=== PATIENT | female | born 1940 | race Caucasian/White ===

== ENCOUNTER 2020-02-11 10:37 | Emergency (ER) | payer MEDICARE, OTHER, SELFPAY ==
--- NOTE | ~2020-02-11 | XR_ITS ---
EXAMINATION: XR chest 1V portable INDICATION: Cough and shortness of breath TECHNIQUE: Portable AP chest at 1155 hours COMPARISON: None available FINDINGS: There are minimal airspace opacities of the lung bases. No pleural effusion or pneumothorax is identified. The cardiomediastinal silhouette is normal. IMPRESSION: 1. No acute cardiopulmonary abnormality. Reviewed, dictated and finalized at location A.
[2020-02-11 10:54] VITALS: BP 154/76; PULSE 77; RESP 14; TEMP 36.7; O2SAT 99
[2020-02-11 11:30] VITALS: O2SAT 100
[2020-02-11 11:36] LABS: Basophils Percent Auto 0.1 % (0.2-1.2); Hematocrit 33.8 % (37.0-47.0); Hemoglobin 11.5 g/dL (12.0-15.0); Immature Granulocyte Absolute 0.02 K/mm3 (0.00-0.031); Immature Granulocyte Percent A 0.3 % (0-0.5); Lymphocytes Percent Auto 7.5 % (18.3-44.2); Mean Corpuscular Hemoglobin 29.5 pg (26-34); Mean Corpuscular Volume 86.7 fl (80-100); Mean Platelet Volume 9.6 fl (7.4-10.4); Monocytes Absolute Auto 0.8 K/mm3 (0.1-0.6); Monocytes Percent Auto 9.7 % (2.6-8.5); Neutrophils Absolute Auto 6.6 K/mm3 (1.3-6.7); Neutrophils Percent Auto 82.4 % (45.5-73.1); Platelet Count Result 317 k/mm3 (150-375); Red Cell Distribution Width 13.7 % (11.5-14.5)
[2020-02-11 11:42] LABS: Anion Gap 14.9 mmol/L (7-16); Blood Urea Nitrogen 23 mg/dL (7-17); Calcium 8.7 mg/dL (8.4-10.2); Carbon Dioxide 22 mmol/L (22-30); Chloride 94 mmol/L (98-107); Estimated Glomerular Filt Rate 60; Glucose 120 mg/dL (65-105); Potassium 3.9 mmol/L (3.4-5.0); Sodium 127 mmol/L (137-145)
[2020-02-11] MEDS: SODIUM CHLORIDE 0.9% IV 1,000 ML 999 ML IV CONT (12:36)
--- NOTE | 2020-02-11 12:47 | ED.URI ---
HPI - URI/Sore Throat General Chief Complaint: Upper Respiratory Infection Stated Complaint: COUGH, LOW GRADE TEMP, DECREASED TASTE Time Seen by Provider: 02/11/20 10:46 History of Present Illness HPI Narrative: Patient is an 79-year-old female who presents the ER with weakness and sinus congestion. Ongoing for last 10 days. Reports that she is exposed to 2 people who are known, with positive who tested positive approximately 5 days ago. Reports low-grade temp. Mild fatigue with sweats or chills. No dyspnea. She has not had productive cough. She reports decreased taste. Patient reports she is on a Z-Remberto earlier in the week and then has had a little bit of diarrhea since then. Related Data Home Medications Medication Instructions Recorded Confirmed Ca carb-D3-mag za-odn-czva-Zn 1 tablet PO DAILY 02/11/20 [Caltrate + D3 Plus Minerals] aspirin 325 mg PO DAILY 02/11/20 02/11/20 b.zbu-xqn-ejmqj-nej-yvyb-yyslk ea PO 02/11/20 [Black Cohosh Menopause Complex] cholecalciferol (vitamin D3) 25 mcg PO DAILY 02/11/20 fexofenadine [Yadira Allergy] 180 mg PO DAILY 02/11/20 fluticasone propionate 1 spray INTRANASAL DAILY 02/11/20 losartan-hydrochlorothiazide 1 tablet PO DAILY 02/11/20 02/11/20 naproxen sodium [Aleve] 220 mg PO BID 02/11/20 omeprazole 20 mg PO DAILY 02/11/20 Allergies Allergy/AdvReac Type Severity Reaction Status Date / Time No Known Allergies Allergy Verified 02/11/20 10:57 Review of Systems Review of Systems: All systems reviewed & are unremarkable except as noted in HPI and below Constitutional: Constitutional: Denies chills, Denies fever(s) and Reports weakness ENT: Reports nasal congestion and Denies sore throat Comments: decreased taste Cardiovascular: Cardiovascular: Denies chest pain and Denies radiating jaw, neck or arm pain Respiratory: Respiratory: Denies cough and Denies dyspnea Gastrointestinal: Gastrointestinal: Denies abdominal pain, Reports diarrhea, Denies nausea and Denies vomiting PMFSH Past Medical History Medical History (Updated 02/11/20 @ 13:00 by Manan Mcnair MD) Degenerative disc disease Hypertension Surgical History Surgical History (Updated 02/11/20 @ 12:54 by Manan Mcnair MD) No pertinent past surgical history Social History Social History (Updated 02/11/20 @ 12:54 by Manan Mcnair MD) Smoking status: Never smoker Gender identity (if verbalized by the patient): Female Exam Narrative: Exam Narrative: GENERAL: Well-appearing, well-nourished, and in no acute distress. HEAD: Normocephalic, atraumatic. ENT: Mucous membranes moist. CHEST: Clear to auscultation. No respiratory distress. HEART: Regular rate and rhythm. Normal peripheral pulses. ABDOMEN: Soft, nontender, nondistended. EXTREMITIES: Normal range of motion. No edema. SKIN: Warm, dry, no rash. NEURO: Alert and oriented x3. Course Course Emergency Course: Low sodium level. Patient hydrated. Negative x-ray and otherwise unremarkable lab work. Contacted patient's PCP Dr. Richardson who will follow pt up outpatient. Discussed return precautions. Vital Signs Vital signs: Vital Signs Temperature 98.1 F 02/11/20 10:54 Pulse Rate 77 02/11/20 10:54 Respiratory Rate 14 02/11/20 10:54 Blood Pressure 154/76 H 02/11/20 10:54 Pulse Oximetry 99 02/11/20 10:54 Temperature 98.1 F 02/11/20 10:54 Pulse Rate 77 02/11/20 10:54 Respiratory Rate 14 02/11/20 10:54 Blood Pressure 154/76 H 02/11/20 10:54 Pulse Oximetry 100 02/11/20 11:30 MDM - URI/Sore Throat Lab Data Result diagrams: 02/11/20 11:07 02/11/20 11:07 Labs: Lab Results 02/11/20 02/11/20 02/11/20 Range/Units 11:07 11:07 11:08 WBC 8.0 (4.5-10.0) K/mm3 RBC 3.90 L (4.2-5.4) M/mm3 Hgb 11.5 L (12.0-15.0) g/dL Hct 33.8 L (37.0-47.0) % MCV 86.7 (80-100) fl MCH 29.5 (26-34) pg MCHC 34.0 (32-36) g/dl RDW 13.7 (11.5-14.5)
[2020-02-11 13:10] VITALS: BP 146/80; PULSE 75; RESP 14; O2SAT 99
[2020-02-11 13:35] VITALS: BP 124/74; PULSE 75; RESP 14; O2SAT 99
[2020-02-11 19:46] LABS: SARS-CoV-2 RNA PCR Positive
== END 2020-02-11 13:44 | disposition home or self-care (01) ==
PROVIDERS: Emergency Provider Emergency Medicine; PCP Internal Medicine
DX: U07.1 COVID-19 (principal); E87.1 Hypo-osmolality and hyponatremia; I10 Essential (primary) hypertension; Z79.82 Long term (current) use of aspirin
CPT/HCPCS: 36415; 71045; 80048; 85025; 87635; 96360; 99283; C9803; J7030; U0003

== ENCOUNTER 2020-02-29 07:44 | Inpatient (IN) | payer MEDICARE, OTHER, SELFPAY ==
[2020-02-29] VITALS (23 sets, daily range): BP systolic 96–138; BP diastolic 58–99; PULSE 63–180; RESP 15–22; TEMP 35.9–37.1; O2SAT 96–98; BMI 26.7
--- NOTE | ~2020-02-29 | XR_ITS ---
EXAMINATION: XR chest 1V portable EXAM DATE: 02/29/2020 08:14 INDICATION: Shortness of breath and dizziness. TECHNIQUE: Portable AP frontal chest x-ray was obtained. Comparison is made to prior examination from 02/11/2020. FINDINGS: Interval development of extensive extensive abnormal reticulation, most likely acute edema or infection. Please clinically correlate. The cardiomediastinal silhouette is prominent but magnifie d on this AP technique. Cardiac silhouette is stable in size compared to prior exam. There is no pneu mothorax suspected. There are no pleural effusions. There are mild bony degenerative changes. IMPRESSION: 1. Development of extensive acute airspace disease, likely infection or edema. Please clinically cor relate. Reviewed, dictated and finalized at location B. IMPRESSION: 1. Development of extensive acute airspace disease, likely infection or edema. Please clinically correlate.
--- NOTE | ~2020-02-29 | XR_ITS ---
EXAMINATION: XR chest 1V portable EXAM DATE: 03/03/2020 06:56 INDICATION: COVID 19. TECHNIQUE: Portable AP frontal chest x-ray was obtained. Comparison is made to prior examination from 02/29/2020. FINDINGS: Moderate amount of patchy bilateral indistinct reticulonodular acute airspace disease. Prob ably infection given history provided. Difficult to appreciate significant interval change compared t o 02/28 but has developed compared to 02/10. No pneumothorax or pleural effusion. Cardiomediastinal silh ouette is normal. There are no osseous abnormalities identified. IMPRESSION: 1. Moderate amount bilateral acute reticular nodular airspace disease. Reviewed, dictated and finalized at location B.
--- NOTE | 2020-02-29 07:51 | ECG_ITS ---
Measurements Intervals [place] Rate: 154 P: AL: 0 QRS: -6 QRSD: 93 T: 85 QT: 260 QTc: 416 Interpretive Statements ATRIAL FIBRILLATION WITH RAPID VENTRICULAR RESPONSE NONSPECIFIC ST & T-WAVE ABNORMALITY- HIGH LATERAL LEADS BASELINE ARTIFACT- I, III, AVR, AVL ABNORMAL ECG Electronically Signed On 02-29-2020 8:25:32 CDT by Roland Melgar D.O.
--- NOTE | 2020-02-29 07:51 | ED.GENADULT ---
HPI - General Adult General Chief complaint: Chest Pain Stated complaint: afib rvr Time Seen by Provider: 02/29/20 07:48 History of Present Illness HPI narrative: Brought in by EMS from home for a-fib. She awoke from sleep this morning feeling weak, dizzy, and SOB. EMS was called. They found her to be in atrial fibrillation w/ RVR, rate 160-200. She has no h/o atrial fibrillation. No CP, fever, cough. Related Data Home Medications Medication Instructions Recorded Confirmed Ca carb-D3-mag el-orv-wepo-Zn 1 tablet PO DAILY 02/11/20 [Caltrate + D3 Plus Minerals] aspirin 325 mg PO DAILY 02/11/20 02/11/20 b.zqu-pkl-kmvij-dlj-umyc-wevwd ea PO 02/11/20 [Black Cohosh Menopause Complex] cholecalciferol (vitamin D3) 25 mcg PO DAILY 02/11/20 fexofenadine [Yadira Allergy] 180 mg PO DAILY 02/11/20 fluticasone propionate 1 spray INTRANASAL DAILY 02/11/20 losartan-hydrochlorothiazide 1 tablet PO DAILY 02/11/20 02/11/20 naproxen sodium [Aleve] 220 mg PO BID 02/11/20 omeprazole 20 mg PO DAILY 02/11/20 Allergies Allergy/AdvReac Type Severity Reaction Status Date / Time No Known Allergies Allergy Verified 02/11/20 10:57 Review of Systems Review of Systems: All systems reviewed & are unremarkable except as noted in HPI and below Constitutional: Constitutional: Reports weakness Cardiovascular: Cardiovascular: Denies chest pain Respiratory: Respiratory: Denies cough and Reports dyspnea Gastrointestinal: Gastrointestinal: Denies nausea and Denies vomiting Genitourinary: Genitourinary: Denies hematuria and Denies dysuria Neurologic: Reports dizziness and Reports weakness Psychiatric: Psychiatric: Denies anxiety [facility] Past Medical History Medical History Degenerative disc disease Hypertension Surgical History Surgical History No pertinent past surgical history Social History Social History Smoking status: Never smoker Gender identity (if verbalized by the patient): Female Exam Const: General: healthy appearing, no acute distress and alert Orientation/consciousness: patient oriented x3 HENMT: Head: normal to inspection Neck: Neck: normal visual inspection and no lymphadenopathy Resp: Effort & Inspection: normal respiratory effort Auscultation: clear to auscultation bilaterally and crackles Cardio: Jugular venous distension: no JVD Rate: tachycardic Rhythm: abnormal rhythm irregularly irregular Heart sounds: no murmurs GI: Inspection: non-distended GI Palp: Yes Soft to palpation and No Tenderness to palpation present (GI) Skin: General skin exam: normal color Neuro: General: patient oriented x3 and moves all extremities Speech: normal speech Extrem: General: edema bilateral (trace) Psych: Appearance: well kempt Affect: normal affect Course Consultations Consultation #1: Dr. Jacobsen. Discussed case. He does not believe that she needs to be retested or put on isolation for COVID-19 at this time. Date: 02/29/20 Time: 09:28 Vital Signs Vital signs: Vital Signs Temperature 37.1 C 02/29/20 07:41 Pulse Rate 174 H 02/29/20 07:41 Respiratory Rate 22 H 02/29/20 07:41 Blood Pressure 125/87 02/29/20 07:41 Pulse Oximetry 97 02/29/20 07:41 Temperature 37.1 C 02/29/20 07:41 Pulse Rate 143 H 02/29/20 09:25 Respiratory Rate 19 02/29/20 08:50 Blood Pressure 102/65 02/29/20 09:25 Pulse Oximetry 96 02/29/20 08:50 Medical Decision Making [facility] Narrative Medical decision making narrative: New onset a-fib. Medical Records Medical records reviewed: Yes I reviewed the patient's medical records. Vital Signs Vital Signs: Vital Signs Temperature 37.1 C 02/29/20 07:41 Pulse Rate 174 H 02/29/20 07:41 Respiratory Rate 22 H 02/29/20 07:41 Blood Pressure 125/87 02/29/20 07:41 Pulse Oxi
--- NOTE | 2020-02-29 07:51 | PC.NURSE ---
VERBAL ORDER FROM MATTHIAS CARUSO AT BEDSIDE TO RUN LR 1L BOLUS HUNG BY EMS EN ROUTE. BOLUS RUNNING AT THIS TIME.
[2020-02-29] MEDS: dilTIAZem HCl INJ 25 MG/5 ML VIAL 10 MG IV PUSH (07:58)
[2020-02-29] MEDS: SODIUM CHLORIDE 0.9% IV 500 ML 999 ML IV CONT (07:59)
--- NOTE | 2020-02-29 07:59 | PC.NURSE ---
PER ERP ARNOLDO LR STOPPED AT THIS TIME PER ORDER FROM RAFAEL MEZA BOLUS STARTED IN IT'S PLACE.
[2020-02-29 08:01] LABS: Basophils Percent Auto 0.5 % (0.2-1.2); Eosinophils Absolute Auto 0.2 K/mm3 (0-0.3); Eosinophils Percent Auto 2.8 % (0-4.4); Hematocrit 30.8 % (37.0-47.0); Hemoglobin 10.4 g/dL (12.0-15.0); Immature Granulocyte Absolute 0.03 K/mm3 (0.00-0.031); Immature Granulocyte Percent A 0.4 % (0-0.5); Lymphocytes Absolute Auto 0.75 K/mm3 (0.9-3.2); Lymphocytes Percent Auto 8.9 % (18.3-44.2); Mean Corpuscular HGB Conc 33.8 g/dl (32-36); Mean Corpuscular Hemoglobin 29.4 pg (26-34); Mean Platelet Volume 8.2 fl (7.4-10.4); Monocytes Absolute Auto 0.9 K/mm3 (0.1-0.6); Monocytes Percent Auto 11.1 % (2.6-8.5); Neutrophils Absolute Auto 6.5 K/mm3 (1.3-6.7); Neutrophils Percent Auto 76.3 % (45.5-73.1); Platelet Count Result 656 k/mm3 (150-375); Red Blood Count 3.54 M/mm3 (4.2-5.4); Red Cell Distribution Width 13.6 % (11.5-14.5); White Blood Count 8.5 K/mm3 (4.5-10.0)
[2020-02-29 08:12] LABS: Alanine Aminotransferase 28 U/L (4-35); Albumin Level 3.9 g/dL (3.5-5.1); Alkaline Phosphatase 144 U/L (38-126); Anion Gap 10 mmol/L (8-16); Aspartate Amino Transferase 34 U/L (14-36); Bilirubin,Total 0.4 mg/dL (0.2-1.3); Blood Urea Nitrogen 25 mg/dL (7-17); Calcium 9.2 mg/dL (8.4-10.2); Carbon Dioxide 24 mmol/L (22-30); Chloride 99 mmol/L (98-107); Estimated CRCL calculation 32 ml/min; Estimated Glomerular Filt Rate 48; Glucose 113 mg/dL (65-105); Potassium 4.3 mmol/L (3.4-5.0); Sodium 133 mmol/L (137-145)
[2020-02-29 08:13] LABS: INR 1.1; Prothrombin Time 13.4 Seconds (11.1-14.7)
[2020-02-29 08:14] LABS: Partial Thromboplastin Time 39.9 SECONDS (22.3-36.8)
[2020-02-29 08:24] LABS: NT Pro B Type Natriuretic Pept 461 PG/ML (5-100); Troponin I < 0.012 ng/mL (0.000-0.034)
--- NOTE | 2020-02-29 08:37 | PC.NURSE ---
VERBAL ORDER BY MATTHIAS CARUSO AT BEDSIDE TO INCREASE DILTIAZEM TO 10MG.
[2020-02-29 08:47] LABS: Add Urine Microscopic? YES; Appearance Urine Clear (Clear); Bilirubin Urine Negative (Negative); Blood Urine Negative (Negative); Color Urine Yellow (Yellow); Glucose Urine UA Negative (Negative); Ketones Urine Negative (Negative); Leukocyte Esterase Ur 1+ LEU/UL (Negative); Mucus Urine Rare /lpf; Nitrate Urine Positive (Negative); Protein Urine Negative (Negative); RBC Urine 0-2 /hpf (0-2); Specific Grav Ur 1.013 (1.001-1.035); Squamous Epithelial Cell Urine Occasional /hpf (Few); Urobilinogen Urine Negative mg/dL (<2.0)
[2020-02-29] MEDS: ENOXAPARIN 80 MG/0.8 ML SYRINGE SUB-Q (09:03)
[2020-02-29] MEDS: FUROSEMIDE INJ 40 MG/4 ML VIAL IV PUSH (09:23)
[2020-02-29] MEDS: DIGOXIN 250 MCG TABLET PO (09:23)
--- NOTE | 2020-02-29 10:22 | PM.CNCAR ---
Assessment and Plan Assessment and plan (1) Atrial fibrillation with RVR: Code(s): I48.91 - Unspecified atrial fibrillation Status: Acute Assessment and Plan: 80 y/o female with no known cardiac history who presents with A fib/RVR Patient has A fib with RVR in the setting of recent + COVID test. Continue Cardizem drip for now.Would not titrate dose further as her BP is marginal. Will also start dig load. Will give IV digoxin 0.25 mg now then 0.125 X2 with 6 hours interval Check 2D echocardiogram Her chest X ray appears worse compared to 02/11/20. Consider repeat COVID test. She received empiric abx for possible superimposed bacterial infection ( no fever or leukocytosis) She would need diuresing at some point but would hold off that as BP relatively low. Her oxygen saturation is normal on room air. (2) Person under investigation for COVID-19: Code(s): Z20.828 - Contact with and (suspected) exposure to other viral communicable diseases Status: Acute (3) Hypertension: Code(s): I10 - Essential (primary) hypertension Status: Acute Assessment and Plan: Hold antihypertensives History of Present Illness History of Present Illness Consult date/time: 02/29/20 10:22 80 y/o female with h/o HTN and no known cardiac historywho presented with nausea, dizziness and was found to be in A fib with RVR. She was recently in the ER with nasal congestion and tested positive for COVID (02/11/20). Since then she reports feeling shortness of breath that has been gradually getting worse. Today around 5 am she has acute onset of dizziness associated with nausea and more shortness of breath. She was found to be in A fib with HR ~150s. She received IV cardizem and currently on the drip at 10 mg. She also received 500 cc of fluids as her BP was borderline low. Her most recent BP is 100/60. Her HR currently is ~ 120. She still feels poorly overall but she denies chest pain. EKG shows A fin with RVR @ HR 154 Chest Xray appears worse compared to last study 2 weeks ago and was reported as pneumonia vs edema. Labs are notable for Cr 1.1 (up from 0.9). No leukocytosis. First trop negative Reason For Visit: Atrial fibrillation/CHF Review of Systems Review of Systems: All systems reviewed & are unremarkable except as noted in HPI and below Constitutional: Constitutional: Reports fatigue and Denies headache(s) Eyes: Eyes: Denies blurry vision ENT: Reports Normal hearing present and Denies headache(s) Cardiovascular: Cardiovascular: Denies chest pain, Denies diaphoresis, Denies pedal edema, Denies leg edema, Denies lightheadedness, Reports palpitations and Denies dyspnea Respiratory: Respiratory: Denies cough and Reports dyspnea Gastrointestinal: Gastrointestinal: Denies abdominal pain Musculoskeletal: Musculoskeletal: Denies back pain Neurologic: Reports Normal hearing present and Reports headache(s) Psychiatric: Psychiatric: Denies anxiety Endocrine: Endocrine: Denies fatigue and Denies palpitations PMFSH Past Medical History Medical History Degenerative disc disease Hypertension Surgical History Surgical History No pertinent past surgical history Social History Social History Smoking status: Never smoker Gender identity (if verbalized by the patient): Female Meds Home Medications and Allergies Home Medications Medication Instructions Recorded Confirmed Type Ca carb-D3-mag wq-fje-lril-Zn 1 tablet PO DAILY 02/11/20 History [Caltrate + D3 Plus Minerals] aspirin 325 mg PO DAILY 02/11/20 02/11/20 History b.cnk-pag-bhqld-vjb-jtzr-tsrsx ea PO 02/11/20 History [Black Cohosh Menopause Complex] cholecalciferol (vitamin D3) 25 mcg PO DAILY 02/11/20 History fexofenadine [Yadira Allergy] 180
[2020-02-29 11:31] LABS: Troponin I 0.021 ng/mL (0.000-0.034)
--- NOTE | 2020-02-29 12:32 | ADMGEN ---
This patient, Priyanka Castaneda, was admitted to Intensive Care Unit-1 on 02/29/20 @ 1042. Patient oriented to hospital policies and general routines including ID bracelet, bed and alarms, visiting hours, pain management, procedures, bathroom and other care routines, personal items, smoking policy, room service/diet, and visiting hours. Valuables list has been completed. Information on how to activate the Rapid Response Team has been discussed. Patient is encouraged to report perceived risks to care and to ask questions if they do not understand what they are told or what they should do.
[2020-02-29] MEDS: dilTIAZem HCL 60 MG TABLET PO ×3 (13:29→23:54)
--- NOTE | 2020-02-29 13:30 | PM.IMHP ---
H&P: HPI History of Present Illness Date/Time: 02/29/20 13:20 Chief complaint: Short of breath, weak, dizzy. Narrative: Priyanka Castaneda is an 80-year-old female with hypertension who presented to the emergency department earlier this morning via EMS from home for evaluation of shortness of breath, weakness, and dizziness. Approximately 3 and half weeks ago she was exposed to somebody positive for COVID-19, and several days thereafter she developed symptoms initially attributed to a sinus infection including congestion, rhinorrhea, low-grade fever, hot flashes, hyposmia, and dysgeusia. She was prescribed a Z-Remberto by her primary care provider without much benefit and she was then seen emergency department on February 10 for she tested positive for COVID-19. She continued to have symptoms for a couple of weeks, before developing a nonproductive dry cough over the last for 5 days. She has also had some mild shortness of breath and in fact has been using her daughters rescue inhaler on occasion. At approximately 05:30, she was wakened from sleep with shortness of breath and when she got up she reports feeling extremely weak, dizzy/lightheaded, nauseated, and diaphoretic. Shortly thereafter she developed midsternal chest tightness and came into the emergency department, where she was found to be in new onset atrial fibrillation with rapid ventricular response. She was started on a Cardizem drip and has since converted to normal rhythm. The only complaint she has at the time my evaluation is of fatigue. She has not had exertional chest pain and denies feelings of racing heart and palpitations. She has no prior history of atrial fibrillation, hypothyroidism, coronary artery disease, or pulmonary embolism. Prior to COVID, she did not have exertional shortness of breath. No orthopnea, PND, or lower extremity Review of Systems Review of Systems: Narrative: Twelve systems were reviewed with pertinent positives and negatives as per HPI. Tested positive for COVID on February 11, 2020 as detailed above with symptoms include low-grade fever, dry cough, sinus congestion, rhinorrhea, anosmia, and dysgeusia. No headache, vertigo, auditory, or visual changes. No vomiting or diarrhea. No dysuria hematuria but she has had urinary frequency and urgency. Except as documented, all other systems were reviewed and are negative. [facility] Past Medical History Medical History (Updated 02/29/20 @ 13:24 by Ayaka Arreguin PA-C) Degenerative disc disease Gastroesophageal reflux Hypertension Surgical History Surgical History (Updated 02/29/20 @ 16:14 by Ayaka Arreguin PA-C) History of varicose vein stripping Status post debridement Of right lower extremity ulcer x5. Family History Family History Sibling Heart problem Social History Social History (Updated 02/29/20 @ 16:20 by Ayaka Arreguin PA-C) Social History: Surrogate decision maker: Erich Castaneda, . Code status: Full code. Smoking status: Never smoker Alcohol intake: never Substance use: never Additional living arrangements comments: Resides in [place], [place] with her . They have 3 grown children. 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 Gender identity (if verbalized by the patient): Female Sexual Orientation (if Verbalized by the Patient): Straight or Heterosexual Spiritual care concerns: No Meds Home Medications and Allergies Home Medications Medication Instructions Recorded Confirmed Type Ca carb-D3-mag ao-xws-mzmp-Zn 1 tablet PO DAILY 02/11/20 02/29/20 History [Caltrate + D3 Plus Minerals] aspirin See Rx Instructions .ROUTE .COMPLEX 02/11/20 02/29/20 History b.znb-sbe-sylyp-yuf-lekl-cqaad 1 ea PO DAILY 02/11/20 02/29/20 History [Black Cohosh Menopause Complex] cholecalciferol (vitamin D3) 25 mcg PO DAILY 02/11/2002/28
[2020-02-29 14:13] LABS: Troponin I 0.039 ng/mL (0.000-0.034)
[2020-02-29 14:45] LABS: Digoxin 0.6 ng/mL (0.8-2.0)
[2020-02-29] MEDS: DIGOXIN INJ 250 MCG/ML 2 ML AMP (*BKC) 125 MCG IV PUSH ×2 (14:48→20:04)
[2020-02-29 15:27] LABS: Creatinine Urine 8.7 mg/dL
[2020-02-29 15:32] LABS: Sodium Urine Random 105 meq/L
[2020-02-29 15:33] LABS: CRP 1.6 mg/dL (<1.0); Lactate Dehydrogenase 570 U/L (313-618); Magnesium 1.6 mg/dL (1.6-2.3)
[2020-02-29 16:37] LABS: Folic Acid 19.8 ng/mL (2.76->20)
[2020-02-29 16:55] LABS: Iron 81 ug/dL (37-170)
[2020-02-29 16:57] LABS: Percent Iron Saturation 24 % (20-50)
[2020-02-29] MEDS: LORATADINE 10 MG TABLET PO (20:03)
[2020-02-29] MEDS: ENOXAPARIN 80 MG/0.8 ML SYRINGE 70 MG SUB-Q (20:04)
[2020-02-29 23:41] LABS: SARS-CoV-2 RNA PCR Positive
[2020-03-01] VITALS (11 sets, daily range): BP systolic 114–154; BP diastolic 57–75; PULSE 61–89; RESP 17–20; TEMP 36.3–36.9; O2SAT 95–98
[2020-03-01 04:37] LABS: Basophils Absolute Auto 0.1 K/mm3 (0.0-0.1); Basophils Percent Auto 0.7 % (0.2-1.2); Eosinophils Absolute Auto 0.2 K/mm3 (0-0.3); Eosinophils Percent Auto 2.6 % (0-4.4); Hematocrit 27.9 % (37.0-47.0); Hemoglobin 9.5 g/dL (12.0-15.0); Immature Granulocyte Absolute 0.02 K/mm3 (0.00-0.031); Immature Granulocyte Percent A 0.3 % (0-0.5); Lymphocytes Absolute Auto 0.78 K/mm3 (0.9-3.2); Lymphocytes Percent Auto 10.5 % (18.3-44.2); Mean Corpuscular HGB Conc 34.1 g/dl (32-36); Mean Corpuscular Hemoglobin 29.4 pg (26-34); Mean Corpuscular Volume 86.4 fl (80-100); Mean Platelet Volume 8.6 fl (7.4-10.4); Monocytes Absolute Auto 0.9 K/mm3 (0.1-0.6); Monocytes Percent Auto 12.4 % (2.6-8.5); Neutrophils Absolute Auto 5.5 K/mm3 (1.3-6.7); Neutrophils Percent Auto 73.5 % (45.5-73.1); Platelet Count Result 636 k/mm3 (150-375); Red Blood Count 3.23 M/mm3 (4.2-5.4); Red Cell Distribution Width 13.6 % (11.5-14.5); White Blood Count 7.4 K/mm3 (4.5-10.0)
[2020-03-01 04:49] LABS: INR 1.2; Prothrombin Time 14.4 Seconds (11.1-14.7)
[2020-03-01 04:50] LABS: Partial Thromboplastin Time 55.6 SECONDS (22.3-36.8)
[2020-03-01 04:51] LABS: Anion Gap 7 mmol/L (8-16); Blood Urea Nitrogen 25 mg/dL (7-17); Calcium 8.6 mg/dL (8.4-10.2); Carbon Dioxide 26 mmol/L (22-30); Chloride 99 mmol/L (98-107); Estimated CRCL calculation 38 ml/min; Estimated Glomerular Filt Rate 60; Glucose 92 mg/dL (65-105); Magnesium 1.7 mg/dL (1.6-2.3); Sodium 132 mmol/L (137-145)
[2020-03-01 05:03] LABS: Troponin I 0.035 ng/mL (0.000-0.034)
[2020-03-01] MEDS: dilTIAZem HCL 60 MG TABLET PO ×4 (06:22→23:55)
[2020-03-01] MEDS: FLUTICASONE PROPIONATE 0.05% NA SPR 16 GM BTL (*BKC) 1 SPRAY NASAL (08:50)
[2020-03-01] MEDS: PANTOPRAZOLE 40 MG TABLET PO (08:50)
[2020-03-01] MEDS: ENOXAPARIN 80 MG/0.8 ML SYRINGE 70 MG SUB-Q ×2 (08:51→21:46)
[2020-03-01] MEDS: CHOLECALCIFEROL 1,000 UNITS TABLET 1000 UNITS PO (08:52)
--- NOTE | 2020-03-01 09:55 | PM.IMPN ---
Progress Note: A&P Assessment and Plan (1) Atrial fibrillation with RVR: Code(s): I48.91 - Unspecified atrial fibrillation Status: Acute Assessment and Plan: Now NSR Remains anticoagulated (2) COVID-19: Code(s): U07.1 - COVID-19 Status: Acute Assessment and Plan: Likely persistent positive from 02/10 illness (3) Hypertension: Qualifiers: Hypertension type: unspecified Qualified Code(s): I10 - Essential (primary) hypertension Code(s): I10 - Essential (primary) hypertension Status: Acute Assessment and Plan: monitor on diltiazem (4) Hyponatremia: Code(s): E87.1 - Hypo-osmolality and hyponatremia Status: Acute Assessment and Plan: Likely volume depletion and acute illness Avoid IVF due to recent COVID f/u lab (5) Elevated serum creatinine: Code(s): R79.89 - Other specified abnormal findings of blood chemistry Status: Acute Assessment and Plan: Resolved Subjective Date/time seen: 03/01/20 09:55 Interval history: 03/01 Taste and smell intact. No c/o except tired. Review of Systems Review of Systems: All systems reviewed & are unremarkable except as noted in HPI and below Exam Narrative: Exam Narrative: HEENT: EOMI, PERRL, sclerae nonicteric, pharyngeal mucosa pink and intact NECK: No JVD, adenopathy, or thyromegaly CHEST: Clear to auscultation. Normal effort. HEART: NL S1/S2, regular, no murmur ABDOMEN: BS+, soft, nontender, no mass, no bruits EXTREMITIES: No cyanosis, edema, or clubbing NEUROLOGIC: CN intact and symmetric to inspection. MUSCULOSKELETAL: Tone and strength symmetric. PSYCH: Alert. Oriented to person, place, and time. Objective Data Vital Signs Vital Signs: Vital Signs - 24 hr 02/29/20 10:10 02/29/20 10:42 02/29/20 12:00 Temperature 96.7 F L Pulse Rate 111 H 80 85 Respiratory Rate 19 18 Blood Pressure 115/79 121/66 Pulse Oximetry 96 96 02/29/20 14:00 02/29/20 14:48 02/29/20 16:00 Temperature 97.8 F Pulse Rate 86 90 63 Respiratory Rate 15 Blood Pressure 119/62 Pulse Oximetry 97 02/29/20 18:00 08/21/20 20:00 02/29/20 23:55 Temperature 98.3 F 98.2 F Pulse Rate 70 70 64 Respiratory Rate 17 16 Blood Pressure 119/58 L 120/60 Pulse Oximetry 96 96 03/01/20 00:00 03/01/20 03:42 03/01/20 04:00 Temperature 98.4 F Pulse Rate 61 68 69 Respiratory Rate 17 Blood Pressure 120/58 L Pulse Oximetry 95 03/01/20 08:00 03/01/20 08:43 Temperature 97.5 F L Pulse Rate 63 75 Respiratory Rate 20 Blood Pressure 119/62 Pulse Oximetry 97 Intake/Output Intake/Output: Intake & Output 02/27/20 02/28/20 02/29/20 03/01/20 23:59 23:59 23:59 23:59 Intake Total 1020 480 Output Total 1375 400 Balance -355 80 Meds/Results Medications: Active Medications Generic Name Dose Route Start Last Admin Trade Name Freq PRN Reason Stop Dose Admin Calcium Carbonate 500 mg 03/01/20 09:00 03/01/20 08:52 Os-Michele 500 +D Tablet PO 03/31/20 09:01 500 mg DAILY ARNIE Administration Diltiazem HCl 60 mg 02/29/20 12:20 03/01/20 06:22 Cardizem Tab PO 60 mg Q6HR ARNIE Administration Enoxaparin Sodium 70 mg 02/29/20 21:00 03/01/20 08:51 Lovenox SUB-Q 70 mg Q12HR ARNIE Administration Fluticasone Propionate 1 spray 03/01/20 09:00 03/01/20 08:50 Flonase 0.05% Nasal [place] NASAL 1 spray DAILY ARNIE Administration Furosemide 40 mg 02/29/20 09:00 02/29/20 09:23 Lasix Inj IV PUSH 40 mg Q12HR ARNIE Administration Ceftriaxone Sodium/Dextrose 1 gm in 50 mls @ 100 mls/hr 03/01/20 09:00 03/01/20 08:50 Rocephin 1 Gm/D5w 50 Ml IVPB 100 mls/hr Q24H ARNIE Administration Levalbuterol HCl 2 puff 02/29/20 17:30 Xopenex Hfa INHALATION Q6HRT PRN Shortness Of Breath Loratadine 10 mg 02/29/20 21:00 02/29/20 20:03 Claritin PO 03/30/20 21:01 10 mg HS ARNIE Administration Pantoprazole So
--- NOTE | 2020-03-01 10:52 | ECHO_ITS ---
Patient Info Name: Priyanka Castaneda Age: 80 years : 1940 Gender: Female Ht: 65 in Wt: 157 lbs BSA: 1.82 m2 HR: 64 bpm BP: 119 / 62 mmHg Technical Quality: Good Exam Date: 03/01/2020 10:01 AM Exam Location: [facility] Patient Status: Outpatient Admit Date: 02/29/2020 Staff Ordering Physician: Karissa Rosa MD (jessica) Post Acute Care Nurse Practitioner: Bessy Schwartz RDCS Attending Provider: Gabriel Kirkland MD Exam Type: CA echo doppler color flow Summary 1. Left ventricular systolic function is normal, estimated at 60-65%. 2. There is mildly increased left ventricular wall thickness. 3. Left atrial chamber dimension is mildly enlarged. 4. The aortic valve is trileaflet. 5. There is mild aortic valve sclerosis. 6. There is no aortic valve stenosis. 7. The mitral valve has normal leaflets. 8. There is no mitral valve regurgitation. 9. There is mild tricuspid valve regurgitation. 10. No pulmonary hypertension. 11. Normal inferior vena cava with >50% collapse upon inspiration. 12. There is no pericardial effusion. Left Ventricle Left ventricular chamber dimension is normal. Left ventricular systolic function is normal, estimated at 60-65%. There is mildly increased left ventricular wall thickness. Left ventricular septal wall motion is normal. The left ventricular diastolic function is grade I diastolic dysfunction. Right Ventricle Right ventricular chamber dimension is normal. Right ventricular systolic function is normal. Left Atria Left atrial chamber dimension is mildly enlarged. Right Atria Right atrial chamber dimension is normal. Aortic Valve The aortic valve is trileaflet. There is mild aortic valve sclerosis. There is no aortic valve stenosis. There is no aortic valve regurgitation. Pulmonic Valve The pulmonic valve is normal. There is no pulmonic valve stenosis. There is no pulmonic regurgitation. Mitral Valve The mitral valve has normal leaflets. There is no mitral valve stenosis. There is no mitral valve regurgitation. Tricuspid Valve The tricuspid valve leaflets are normal. There is no significant tricuspid valve stenosis. There is mild tricuspid valve regurgitation. No pulmonary hypertension. Pericardium/Pleural The pericardium appears normal. There is no pericardial effusion. Inferior Vena Cava Normal inferior vena cava with >50% collapse upon inspiration. Aorta The aortic root size at the sinus of Valsalva is normal. The prox ascending aorta size is normal. Left Ventricular Outflow Tract Name Value Normal LVOT 2D LVOT Diameter 1.9 cm LVOT Doppler LVOT Peak Gradient 7 mmHg LVOT Mean Gradient 3 mmHg LVOT VTI 27 cm LVOT VTI/AV VTI Ratio 1.0 LVOT Stroke Volume 78 ml LVOT CO 5.2 l/min LVOT CI 2.9 l/min/m2 Pulmonic Valve Name
--- NOTE | 2020-03-01 13:59 | PM.PNCARD ---
Progress Note: A&P Assessment and Plan (1) Atrial fibrillation with RVR: Code(s): I48.91 - Unspecified atrial fibrillation Status: Acute Assessment and Plan: 80 y/o female with no known cardiac history who presents with A fib/RVR Patient has A fib with RVR in the setting of COVID infection She converted to sinus rhythm Continue Digoxin 0.125 mg daily 2D echo reviewed. She has mildly dilated LA, normal LV systolic function and no significant valvular disease She has shortness of breath still and Her chest X ray appears worse compared to 02/11/20.Possibly related to COVID as she does not appear overtly volume overloaded. Will attempt gentle diuresing and see if that helps her symptoms (2) Hypertension: Qualifiers: Hypertension type: unspecified Qualified Code(s): I10 - Essential (primary) hypertension Code(s): I10 - Essential (primary) hypertension Status: Acute Assessment and Plan: Continue to hold antihypertensives as BP borderline low since admission (3) COVID-19: Code(s): U07.1 - COVID-19 Status: Acute Assessment and Plan: X ray shows infiltrates however stable on room air oxygen Subjective Date/time seen: 03/01/20 13:59 COVID came back positive She converted to normal sinus rhythm She feels better overall. Dizziness and nausea resolved. She is still short of breath but that has improved some. Review of Systems Review of Systems: All systems reviewed & are unremarkable except as noted in HPI and below Constitutional: Constitutional: Denies fatigue and Reports headache(s) Eyes: Eyes: Denies blurry vision ENT: Reports Normal hearing present and Reports headache(s) Cardiovascular: Cardiovascular: Denies chest pain, Denies diaphoresis, Denies pedal edema, Denies leg edema, Denies lightheadedness, Denies palpitations and Reports dyspnea Respiratory: Respiratory: Denies cough and Reports dyspnea Gastrointestinal: Gastrointestinal: Denies abdominal pain Musculoskeletal: Musculoskeletal: Denies back pain Neurologic: Reports Normal hearing present and Reports headache(s) Psychiatric: Psychiatric: Denies anxiety Endocrine: Endocrine: Denies fatigue and Denies palpitations Exam Narrative: Exam Narrative: She appears frail but in nno acute distress. Const: General: no acute distress Eyes: Sclera: sclerae normal Neck: Neck: no JVD Carotids: no bruits Resp: Effort & Inspection: normal respiratory effort Cardio: Rate: not tachycardic Heart sounds: no gallops, no murmurs and no rubs Other: Irregular. Tachy. No murmurs Skin: General skin exam: normal color Neuro: Cranial nerves: Yes Normal hearing present Speech: normal speech Extrem: General: normal to inspection and no edema Psych: Affect: normal affect Objective Data Vital Signs Vital Signs: Vital Signs - 24 hr 02/29/20 14:00 02/29/20 14:48 02/29/20 16:00 Temperature 36.6 C Pulse Rate 86 90 63 Respiratory Rate 15 Blood Pressure 119/62 Pulse Oximetry 97 02/29/20 18:00 02/29/20 20:00 02/29/20 23:55 Temperature 36.8 C 36.8 C Pulse Rate 70 70 64 Respiratory Rate 17 16 Blood Pressure 119/58 L 120/60 Pulse Oximetry 96 96 03/01/20 00:00 03/01/20 03:42 03/01/20 04:00 Temperature 36.9 C Pulse Rate 61 68 69 Respiratory Rate 17 Blood Pressure 120/58 L Pulse Oximetry 95 03/01/20 08:00 03/01/20 08:43 03/01/20 10:00 Temperature 36.4 C L Pulse Rate 63 75 64 Respiratory Rate 20 Blood Pressure 119/62 Pulse Oximetry 97 03/01/20 10:01 03/01/20 12:00 03/01/20 12:38 Temperature 36.3 C L Pulse Rate 67 65 65 Respiratory Rate 18 17 Blood Pressure 114/57 L 127/65 Pulse Oximetry 98 97 Intake/Output Intake/Output: Intake & Output 02/27/20 02/28/20 02/29/20 03/01/20 23:59 23:59 23:59 23:59 Intake Total 1020 530 Output Total 1375 400 Balance -355 130 Meds/Results Medications: Active Medicat
--- NOTE | 2020-03-01 14:58 | PC.NURSE ---
Recived report from Nakita RN/ICu- Pt arrived to med/surg [id number].Pt was on Rm air. A/Ox3.
[2020-03-01] MEDS: FUROSEMIDE INJ 40 MG/4 ML VIAL 20 MG IV PUSH (15:05)
--- NOTE | 2020-03-01 15:36 | PC.NURSE ---
This patient, Priyanka Castaneda, was transferred to [facility] on 03/01/20 at 1400. Personal belongings sent with patient. Belongings list checked. Report given to REUBEN POZO. Appropriate documentation sent with patient.
--- NOTE | 2020-03-01 18:50 | PC.NURSE ---
was made aware of urine culture results ( Gram negative bacilli isolated). He wants to continue already started Rocephin antibiotic treatment until the sensitivity report comes back.No further orders received.
[2020-03-01] MEDS: LORATADINE 10 MG TABLET PO (21:46)
[2020-03-02] VITALS (7 sets, daily range): BP systolic 110–136; BP diastolic 53–68; PULSE 65–94; RESP 18; TEMP 36.3–36.8; O2SAT 95–99
[2020-03-02] MEDS: dilTIAZem HCL 60 MG TABLET PO ×2 (06:47→12:23)
[2020-03-02] MEDS: PANTOPRAZOLE 40 MG TABLET PO (06:50)
[2020-03-02] MEDS: DIGOXIN TAB 125 MCG TABLET PO (10:05)
[2020-03-02] MEDS: CHOLECALCIFEROL 1,000 UNITS TABLET 1000 UNITS PO (10:05)
[2020-03-02] MEDS: FLUTICASONE PROPIONATE 0.05% NA SPR 16 GM BTL (*BKC) 1 SPRAY NASAL (10:05)
[2020-03-02] MEDS: ENOXAPARIN 80 MG/0.8 ML SYRINGE 70 MG SUB-Q (10:06)
--- NOTE | 2020-03-02 10:37 | PC.NURSE ---
Notified AURELIANO Vasquez of final urine culture results. No new orders at this time.
--- NOTE | 2020-03-02 14:08 | PM.PNCARD ---
Progress Note: A&P Assessment and Plan (1) Atrial fibrillation with RVR: Code(s): I48.91 - Unspecified atrial fibrillation Status: Acute Assessment and Plan: 80 y/o female with no known cardiac history who presents with A fib/RVR Patient has A fib with RVR in the setting of COVID infection She converted to sinus rhythm Continue Cardizem. Will switch to long acting 180 daily 2D echo reviewed. She has mildly dilated LA, normal LV systolic function and no significant valvular disease She has shortness of breath still and Her chest X ray appears worse compared to 02/11/20.Possibly related to COVID as she does not appear overtly volume overloaded. (2) Hypertension: Qualifiers: Hypertension type: unspecified Qualified Code(s): I10 - Essential (primary) hypertension Code(s): I10 - Essential (primary) hypertension Status: Acute Assessment and Plan: Switch Cardizem to 180 daily. Previously was on Losartan/HCTZ at home. Her BP is well controlled with Cardizem . Would d/c Losartan/HCTZ (3) COVID-19: Code(s): U07.1 - COVID-19 Status: Acute Assessment and Plan: X ray shows infiltrates however stable on room air oxygen Subjective Date/time seen: 03/02/20 14:08 Developed diarrhea. Otherwise feels better. Shortness of breath improved. Back in normal sinus rhythm Review of Systems Review of Systems: All systems reviewed & are unremarkable except as noted in HPI and below Constitutional: Constitutional: Denies fatigue and Reports headache(s) Eyes: Eyes: Denies blurry vision ENT: Reports Normal hearing present and Reports headache(s) Cardiovascular: Cardiovascular: Denies chest pain, Denies diaphoresis, Denies pedal edema, Denies leg edema, Denies lightheadedness, Denies palpitations and Reports dyspnea Respiratory: Respiratory: Denies cough and Reports dyspnea Gastrointestinal: Gastrointestinal: Denies abdominal pain Musculoskeletal: Musculoskeletal: Denies back pain Neurologic: Reports Normal hearing present and Reports headache(s) Psychiatric: Psychiatric: Denies anxiety Endocrine: Endocrine: Denies fatigue and Denies palpitations Exam Narrative: Exam Narrative: She appears frail but in nno acute distress. Const: General: no acute distress Eyes: Sclera: sclerae normal Neck: Neck: no JVD Carotids: no bruits Resp: Effort & Inspection: normal respiratory effort Cardio: Rate: not tachycardic Heart sounds: no gallops, no murmurs and no rubs Other: Irregular. Tachy. No murmurs Skin: General skin exam: normal color Neuro: Cranial nerves: Yes Normal hearing present Speech: normal speech Extrem: General: normal to inspection and no edema Psych: Affect: normal affect Objective Data Vital Signs Vital Signs: Vital Signs - 24 hr 03/01/20 16:00 03/01/20 20:00 03/02/20 00:00 Temperature 36.3 C L 36.6 C 36.4 C L Pulse Rate 72 89 67 Respiratory Rate 20 18 18 Blood Pressure 126/64 154/75 H 136/68 Pulse Oximetry 97 97 95 03/02/20 04:00 03/02/20 08:00 03/02/20 10:05 Temperature 36.6 C 36.4 C L Pulse Rate 65 65 80 Respiratory Rate 18 18 Blood Pressure 128/64 110/63 Pulse Oximetry 96 97 Intake/Output Intake/Output: Intake & Output 02/28/20 02/29/20 03/01/20 03/02/20 23:59 23:59 23:59 23:59 Intake Total 1020 890 300 Output Total 1375 1450 300 Balance -355 -560 0 Meds/Results Medications: Active Medications Generic Name Dose Route Start Last Admin Trade Name Syedq PRN Reason Stop Dose Admin Calcium Carbonate 500 mg 03/01/20 09:00 03/02/20 10:05 Os-Michele 500 +D Tablet PO 03/31/20 09:01 500 mg DAILY ARNIE Administration Digoxin 125 mcg 03/02/20 09:00 03/02/20 10:05 Lanoxin Tab PO 125 mcg QAM ARNIE Administration Diltiazem HCl 180 mg 03/03/20 09:00 Cardizem Cd PO QAM ARNIE Fluticasone Propionate 1 spray 03/01/20 09:00 03/02/20 10:05 Flonase 0.05% Nasal [place] SANGEETHA
--- NOTE | 2020-03-02 14:24 | PM.IMPN ---
Progress Note: A&P Assessment and Plan (1) Atrial fibrillation with RVR: Code(s): I48.91 - Unspecified atrial fibrillation Status: Acute Assessment and Plan: ----- likely secondary to infection but paroxysmal atrial fibrillation cannot be ruled out. She is now normal sinus rhythm and having no chest pain. She appears euvolemic today and her shortness of breath is better. I spoke with Cardiology who recommends Xarelto and further monitoring outpatient (2) COVID-19: Code(s): U07.1 - COVID-19 Status: Acute Assessment and Plan: ----- patient was 1st positive on February 10 and tested positive again on the . she has not utilizing oxygen at this time. Chest x-ray likely represents combination of viral pneumonia and edema. I will check a chest x-ray again tomorrow (3) Hypertension: Qualifiers: Hypertension type: unspecified Qualified Code(s): I10 - Essential (primary) hypertension Code(s): I10 - Essential (primary) hypertension Status: Acute Assessment and Plan: ----- last blood pressure 124/58. Continue diltiazem (4) Hyponatremia: Code(s): E87.1 - Hypo-osmolality and hyponatremia Status: Acute Assessment and Plan: ------ Improving.Likely volume depletion and acute illness. avoiding Fluids at this time. Follow (5) Elevated serum creatinine: Code(s): R79.89 - Other specified abnormal findings of blood chemistry Status: Acute Assessment and Plan: ------Resolved (6) UTI (urinary tract infection): Code(s): N39.0 - Urinary tract infection, site not specified Status: Acute Assessment and Plan: ----- urine culture growing E coli. Continue ceftriaxone. Time Spent With Patient Time with patient: 25 - 35 minutes Subjective Date/time seen: 03/02/20 14:24 Interval history: Pt is a 80-year-old female here for COVID-19 in [facility]. Patient was seen today and states she has significant diarrhea over night. She describes this as a soft stool in a happened about 5 times from 9:00 p.m. to 8:00 a.m. she is unsure she ate something bad or what. She has not had any chest pain since being here. She does feel short of breath intermittently. She feels a little lightheaded today. She is eating and drinking well. Review of Systems Review of Systems: All systems reviewed & are unremarkable except as noted in HPI and below Exam Narrative: Exam Narrative: General: elderly patient resting comfortably in bed in no acute distress HEENT: normocephalic Neck: supple Neuro: Alert and oriented x4 CV:RRR. Telemetry shows normal sinus rhythm with no recurrence of atrial fibrillation Resp:CTA Abd: Soft, non distended. No pain to palpation. Positive bowel sounds Extremities: No swelling, erythema, or pain to palpation. Objective Data Vital Signs Vital Signs: Vital Signs - 24 hr 03/01/20 16:00 03/01/20 20:00 03/02/20 00:00 Temperature 97.3 F L 97.9 F 97.5 F L Pulse Rate 72 89 67 Respiratory Rate 20 18 18 Blood Pressure 126/64 154/75 H 136/68 Pulse Oximetry 97 97 95 03/02/20 04:00 03/02/20 08:00 03/02/20 10:05 Temperature 97.8 F 97.5 F L Pulse Rate 65 65 80 Respiratory Rate 18 18 Blood Pressure 128/64 110/63 Pulse Oximetry 96 97 03/02/20 12:00 Temperature 97.4 F L Pulse Rate 70 Respiratory Rate 18 Blood Pressure 124/58 L Pulse Oximetry 99 Intake/Output Intake/Output: Intake & Output 02/28/20 02/29/20 03/01/20 03/02/20 23:59 23:59 23:59 23:59 Intake Total 1020 890 300 Output Total 1375 1450 300 Balance -355 -560 0 Meds/Results Medications: Active Medications Generic Name Dose Route Start Last Admin Trade Name Syedq PRN Reason Stop Dose Admin Calcium Carbonate 500 mg 03/01/20 09:00 03/02/20 10:05 Os-Michele 500 +D Tablet PO 03/31/20 09:01 500 mg DAILY ARNIE Administration Digoxin 125 mcg 03/02/20 09:00 03/02/20 10:05 Lanoxi
[2020-03-02] MEDS: RIVAROXABAN 20 MG TABLET PO (17:17)
[2020-03-02] MEDS: LORATADINE 10 MG TABLET PO (20:56)
[2020-03-03] VITALS: BP 134/69; PULSE 86; PULSE 87; RESP 16; TEMP 36.4; O2SAT 98
[2020-03-03 04:00] VITALS: BP 129/71; PULSE 79; PULSE 91; RESP 18; TEMP 36.5; O2SAT 97
[2020-03-03 07:01] LABS: Hematocrit 28.6 % (37.0-47.0); Hemoglobin 9.9 g/dL (12.0-15.0); Mean Corpuscular HGB Conc 34.6 g/dl (32-36); Mean Corpuscular Hemoglobin 29.6 pg (26-34); Mean Corpuscular Volume 85.4 fl (80-100); Mean Platelet Volume 8.3 fl (7.4-10.4); Platelet Count Result 653 k/mm3 (150-375); Red Blood Count 3.35 M/mm3 (4.2-5.4); Red Cell Distribution Width 13.7 % (11.5-14.5); White Blood Count 7.1 K/mm3 (4.5-10.0)
[2020-03-03 07:17] LABS: Potassium 3.7 mmol/L (3.4-5.0)
[2020-03-03 07:30] LABS: Anion Gap 9 mmol/L (8-16); Blood Urea Nitrogen 19 mg/dL (7-17); Calcium 8.7 mg/dL (8.4-10.2); Carbon Dioxide 24 mmol/L (22-30); Chloride 97 mmol/L (98-107); Estimated CRCL calculation 42 ml/min; Estimated Glomerular Filt Rate > 60; Glucose 97 mg/dL (65-105); Sodium 130 mmol/L (137-145)
[2020-03-03 08:00] VITALS: BP 156/79; PULSE 96; PULSE 98; RESP 18; TEMP 36.6; O2SAT 96
[2020-03-03 09:05] VITALS: PULSE 80; RESP 18; O2SAT 96
[2020-03-03] MEDS: CHOLECALCIFEROL 1,000 UNITS TABLET 1000 UNITS PO (09:11)
[2020-03-03 09:12] VITALS: PULSE 80
[2020-03-03] MEDS: FLUTICASONE PROPIONATE 0.05% NA SPR 16 GM BTL (*BKC) 1 SPRAY NASAL (09:12)
[2020-03-03] MEDS: DIGOXIN TAB 125 MCG TABLET PO (09:12)
[2020-03-03] MEDS: dilTIAZem HCL CD 180 MG CAP.ER.24H PO (09:12)
[2020-03-03] MEDS: PANTOPRAZOLE 40 MG TABLET PO (09:12)
[2020-03-03 12:00] VITALS: BP 139/63; PULSE 84; PULSE 85; RESP 18; TEMP 36.8; O2SAT 96
--- NOTE | 2020-03-03 13:14 | PM.DS ---
DS: Admitting Diagnosis Admitting Diagnosis Admitting Diagnosis: Short of breath, weak, dizzy. DS: Discharge Diagnosis Discharge Diagnosis (1) Atrial fibrillation with RVR: Code(s): I48.91 - Unspecified atrial fibrillation Status: Acute Assessment and Plan: ----- likely secondary to infection but paroxysmal atrial fibrillation cannot be ruled out. She is now normal sinus rhythm and having no chest pain. She appears euvolemic today and her shortness of breath is better. I spoke with Cardiology who recommends Xarelto and further monitoring outpatient (2) COVID-19: Code(s): U07.1 - COVID-19 Status: Acute Assessment and Plan: ----- patient was 1st positive on February 10 and tested positive again on the . she has not utilizing oxygen at this time. Chest x-ray likely represents combination of viral pneumonia and edema. CXR shows consistent moderate amount of bilateral acute nodular airspace disease consistent with COVID-19 (3) Hypertension: Qualifiers: Hypertension type: unspecified Qualified Code(s): I10 - Essential (primary) hypertension Code(s): I10 - Essential (primary) hypertension Status: Acute Assessment and Plan: ----- last blood pressure 139/63. Continue diltiazem (4) Hyponatremia: Code(s): E87.1 - Hypo-osmolality and hyponatremia Status: Acute Assessment and Plan: ------ Improving.Likely volume depletion and acute illness. avoiding Fluids at this time. Follow (5) Elevated serum creatinine: Code(s): R79.89 - Other specified abnormal findings of blood chemistry Status: Acute Assessment and Plan: ------Resolved (6) UTI (urinary tract infection): Code(s): N39.0 - Urinary tract infection, site not specified Status: Acute Assessment and Plan: ----- urine culture growing E coli. Treated with ceftriaxone. DS: Summary Hospital Course Reason for hospitalization: 80-year-old female who presented emergency room for weakness, dizziness and shortness of breath found to be in AFib RVR and COVID-19 positive. Temperature 37.1?, pulse 174, respiratory rate 22, blood pressure 125/87, pulse ox 97 on room air in the ER. Initial CBC white blood cell count 8.5, hemoglobin 10.4, hematocrit 30.8, platelets 656. Sodium 133, potassium 4.3, chloride 99, carbon dioxide 24, BUN 25, creatinine 1.1, glucose 113. EKG reveals atrial fibrillation with RVR with a rate of 154. Mildly elevated 0.039 which improved with treatment. Patient was admitted to the hospitalist service and observed. She was started on diltiazem, dig, and Xarelto. She remained in normal sinus rhythm at discharge. Cardiology was consulted and recommended follow-up outpatient. She did also have a UTI which she was initially treated with ceftriaxone and discharged on cefdinir. She never required oxygen although her chest x-ray did continue to show moderate airspace disease. Overall, the patient had improvement day of discharge. She was educated about the worrisome signs and symptoms to come back to emergency room for and was discharged in stable condition. She is going to follow-up with her primary care physician and Cardiology. Status at Discharge Overall status at discharge: patient is back to baseline Time Spent with Patient Time attestation: Total time spent providing and/or coordinating discharge services:34min Time spent: Greater than 30 minutes Exam Narrative: Exam Narrative: General: elderly patient resting comfortably in bed in no acute distress HEENT: normocephalic Neck: supple Neuro: Alert and oriented x4 CV:RRR. Telemetry shows normal sinus rhythm with no recurrence of atrial fibrillation Resp:CTA Abd: Soft, non distended. No pain to palpation. Positive bowel sounds Extremities: No swelling, erythema, or pain to palpation. DS: Data Data Completed and Pending Labs on day of discharge:
--- NOTE | 2020-03-03 13:23 | PM.PNCARD ---
Progress Note: A&P Assessment and Plan (1) Atrial fibrillation with RVR: Code(s): I48.91 - Unspecified atrial fibrillation Status: Acute Assessment and Plan: 80 y/o female with no known cardiac history who presents with A fib/RVR Patient has A fib with RVR in the setting of COVID infection She converted to sinus rhythm Continue Cardizem. Will switch to long acting 180 daily 2D echo reviewed. She has mildly dilated LA, normal LV systolic function and no significant valvular disease She has shortness of breath still and Her chest X ray appears worse compared to 02/11/20.Possibly related to COVID as she does not appear overtly volume overloaded. (2) Hypertension: Qualifiers: Hypertension type: unspecified Qualified Code(s): I10 - Essential (primary) hypertension Code(s): I10 - Essential (primary) hypertension Status: Acute Assessment and Plan: Switch Cardizem to 180 daily. Previously was on Losartan/HCTZ at home. Her BP is well controlled with Cardizem . Would d/c Losartan/HCTZ She seems to be stable from cardiac standpoint to be discharged home, please have her follow-up in our office in 1-2 weeks (3) COVID-19: Code(s): U07.1 - COVID-19 Status: Acute Assessment and Plan: X ray shows infiltrates however stable on room air oxygen Subjective Date/time seen: 03/03/20 13:23 she feels better, still with mild cough but no significant shortness of breath. No chest pain Exam Narrative: Exam Narrative: She appears frail but in nno acute distress. Const: General: no acute distress Eyes: Sclera: sclerae normal Neck: Neck: no JVD Carotids: no bruits Resp: Effort & Inspection: normal respiratory effort Cardio: Rate: not tachycardic Heart sounds: no gallops, no murmurs and no rubs Other: Irregular. Tachy. No murmurs Skin: General skin exam: normal color Neuro: Cranial nerves: Yes Normal hearing present Speech: normal speech Extrem: General: normal to inspection and no edema Psych: Affect: normal affect Objective Data Vital Signs Vital Signs: Vital Signs - 24 hr 03/02/20 16:00 03/02/20 20:00 03/03/20 00:00 Temperature 36.4 C 36.8 C 36.4 C Pulse Rate 68 80 87 Respiratory Rate 18 18 16 Blood Pressure 116/53 L 114/64 134/69 Pulse Oximetry 96 96 98 03/03/20 04:00 03/03/20 08:00 03/03/20 09:05 Temperature 36.5 C 36.6 C Pulse Rate 79 98 80 Respiratory Rate 18 18 18 Blood Pressure 129/71 156/79 H Pulse Oximetry 97 96 96 03/03/20 09:12 Temperature Pulse Rate 80 Respiratory Rate Blood Pressure Pulse Oximetry Intake/Output Intake/Output: Intake & Output 02/29/20 03/01/20 03/02/20 03/03/20 23:59 23:59 23:59 23:59 Intake Total 4248 359 9268 540 Output Total 1375 1450 900 700 Balance -355 -560 500 -160 Meds/Results Medications: Active Medications Generic Name Dose Route Start Last Admin Trade Name Freq PRN Reason Stop Dose Admin Calcium Carbonate 500 mg 03/01/20 09:00 03/03/20 09:14 Os-Michele 500 +D Tablet PO 03/31/20 09:01 500 mg DAILY ARNIE Administration Digoxin 125 mcg 03/02/20 09:00 03/03/20 09:12 Lanoxin Tab PO 125 mcg QAM ARNIE Administration Diltiazem HCl 180 mg 03/03/20 09:00 03/03/20 09:12 Cardizem Cd PO 180 mg QAM ARNIE Administration Fluticasone Propionate 1 spray 03/01/20 09:00 03/03/20 09:12 Flonase 0.05% Nasal [place] NASAL 1 spray DAILY ARNIE Administration Ceftriaxone Sodium/Dextrose 1 gm in 50 mls @ 100 mls/hr 03/01/20 09:00 03/03/20 09:16 Rocephin 1 Gm/D5w 50 Ml IVPB 100 mls/hr Q24H ARNIE Administration Levalbuterol HCl 2 puff 02/29/20 17:30 Xopenex Hfa INHALATION Q6HRT PRN Shortness Of Breath Loperamide HCl 2 mg 03/02/20 14:23 Loperamide Hcl PO PRN PRN Diarrhea Loratadine 10 mg 02/29/20 21:00 03/02/20 20:56 Claritin PO 03/30/20 21:01 10 mg HS ARNIE Administration Pantoprazole Sodium 4
[2020-03-05 00:32] LABS: Pneumococcal Antigen Urine Not Detected (Not Detected)
[2020-03-05 05:28] LABS: Osmolality, Urine 258 mOsm/kg (50-1200)
--- NOTE | 2020-03-05 07:46 | PC.NURSE ---
Urine pneumococcal is negative.
[2020-03-05 20:26] LABS: Legionella pneumophila Ag Ur Not Detected (Not Detected)
--- NOTE | 2020-03-11 12:20 | PC.NURSE ---
Urine Legionella is negative.
== END 2020-03-03 15:15 | disposition home or self-care (01) | DRG 178 ==
LOC: ANHED 08:24 → ANHICU 09:48 → ANH3MEDSUR 03-01 14:11
PROVIDERS: Physician Assistant; Specialist; Admitting Provider Family Medicine; Emergency Provider Emergency Medicine; PCP Internal Medicine; Visit Provider Physician Assistant
DX: U07.1 COVID-19 (principal); E87.1 Hypo-osmolality and hyponatremia; I48.91 Unspecified atrial fibrillation; I10 Essential (primary) hypertension; B96.20 Unspecified Escherichia coli [E. coli] as the cause of diseases classified elsewhere
CPT/HCPCS: 36415; 71045; 80048; 80053; 80162; 81001; 82570; 82607; 82728; 82746; 83540; 83550; 83615; 83735; 83880; 83930; 83935; 84300; 84443; 84484; 85025; 85027; 85610; 85730; 86140; 87070; 87077; 87086; 87088; 87186; 87205; 87449; 87635; 87899; 93005; 93306; 96365; 96366; 96367; 96372; 96375; 96376; 97161; 97165; 99285; A9270; C9803; G0378; J0696; J1160; J1650; J1940; J7040; U0003

== ENCOUNTER 2020-04-14 12:05 | Outpatient (CLI) | payer MEDICARE, OTHER, SELFPAY ==
--- NOTE | ~2020-04-14 | XR_ITS ---
XR chest 2V DATE: 04/14/2020 13:01 INDICATION: Shortness of breath for 2 months, chest tightness. History of colon for 2 months. TECHNIQUE: PA and lateral views COMPARISON: 02/28/2020 portable AP chest FINDINGS: There are streaky infiltrates primarily in the mid and lower lung zones, which may represen t mild residual interstitial pneumonia or atelectasis and/or scarring. Infiltrates are significantly improved since 03/03/2020. No pleural effusion. Heart size normal. No pulmonary vascular congestion. No hilar or mediastinal enlargement. No pneumoth orax. Thoracic and lumbar scoliosis. Moderate osteopenia. IMPRESSION: Considerable interval improvement of , but residual bilateral infiltrates since 03/03/2020 Reviewed, dictated and finalized at location A. IMPRESSION: Considerable interval improvement of , but residual bilateral infil trates since 03/03/2020
== END 2020-04-14 12:06 | disposition home or self-care (01) ==
PROVIDERS: Visit Provider Internal Medicine
DX: R06.02 Shortness of breath (principal); R91.8 Other nonspecific abnormal finding of lung field
CPT/HCPCS: 71046

== ENCOUNTER 2020-08-22 11:00 | Outpatient (RCR) | payer MEDICARE, OTHER, SELFPAY ==
[2020-05-26 12:28] VITALS: PULSE 101
== END 2020-08-22 23:59 | disposition home or self-care (01) ==
LOC: ANHCPREHAB 11:00
PROVIDERS: Visit Provider Internal Medicine Pulmonary Disease
DX: J84.9 Interstitial pulmonary disease, unspecified (principal)
CPT/HCPCS: 97150; G0239; G0424

== ENCOUNTER 2020-11-04 13:00 | Outpatient (RCR) | payer SELFPAY | END 2020-11-04 23:59 | disposition home or self-care (01) | LOC: ANHAUDIO 13:00 | PROVIDERS: Visit Provider Internal Medicine | DX: Z46.1 Encounter for fitting and adjustment of hearing aid (principal) | CPT/HCPCS: 99199; V5014 ==

== ENCOUNTER 2020-11-07 11:00 | Outpatient (RCR) | payer MEDICARE, OTHER, SELFPAY ==
[2020-08-25 00:02] VITALS: PULSE 101
--- NOTE | 2020-08-26 09:31 | PCCPR ---
Absent today due to inclement weather
--- NOTE | 2020-09-26 08:36 | PCCPR ---
pt cxl today due to symptoms from COVID shot
== END 2020-11-07 16:30 | disposition home or self-care (01) ==
LOC: ANHCPREHAB 11:00
PROVIDERS: Visit Provider Internal Medicine Pulmonary Disease
DX: J84.9 Interstitial pulmonary disease, unspecified (principal)
CPT/HCPCS: G0239

== ENCOUNTER 2020-11-13 08:52 | Outpatient (CLI) | payer MEDICARE, OTHER, SELFPAY ==
--- NOTE | 2020-11-13 12:57 | WPDSIXMINUTE ---
Six Minute Walk Procedure Procedure Performed Pulmonary Stress Test (6 min walk) Six Minute Walk This is a 6 minutes walk test. The test was performed and interpreted in accordance with the 2014 ERS/ATS task force guidelines. Findings: The patient's resting room air oxygen saturation measured by pulse oximetry was 96% and her heart rate was 80 bpm. Patient ambulated for 305 meters and oxygen saturation remained 96 to 98%. Heart rate at the end of the study was 92 bpm. There are no prior studies for comparison.
== END 2020-11-13 08:53 | disposition home or self-care (01) ==
LOC: ANHPFT 08:54
PROVIDERS: PCP Internal Medicine; Visit Provider Internal Medicine Pulmonary Disease
DX: J84.9 Interstitial pulmonary disease, unspecified (principal)
CPT/HCPCS: 94618

== ENCOUNTER 2021-03-30 17:56 | Emergency (ER) | payer MEDICARE, OTHER, SELFPAY ==
--- NOTE | 2021-03-30 17:59 | ED.SKABFB ---
HPI - Skin/Abscess/Foreign Bdy General Chief complaint: Skin/Abscess/Foreign Body Stated complaint: Bee Sting Time Seen by Provider: 03/30/21 18:18 Source: patient and RN notes reviewed Mode of arrival: ambulatory Limitations: no limitations History of Present Illness HPI narrative: 81-year-old female presents concern for multiple stings to bilateral hands and wrists. She reports just prior to arrival she was stung by several small bees that came out of the ground. Reports sting sites that are swollen, burning, slightly painful. Reports she moved several stingers. She denies any trouble breathing, swollen lips, swollen tongue, diarrhea, vomiting, fever. Reports she used baking soda for pain relief MD complaint: insect bite/sting Related Data Home Medications Medication Instructions Recorded Confirmed Caltrate + D3 Plus Minerals 1 tablet PO DAILY 02/11/20 05/26/20 cholecalciferol (vitamin D3) 25 mcg PO DAILY 02/11/20 05/26/20 fexofenadine [Yadira Allergy] 180 mg PO HS 02/11/20 03/30/21 fluticasone propionate 1 spray INTRANASAL DAILY 02/11/20 03/30/21 omeprazole 20 mg PO DAILY 02/11/20 03/30/21 albuterol sulfate 2 puff INHALATION QID PRN 02/29/20 03/30/21 Tumeric 500 mg PO DAILY 05/26/20 03/30/21 diphenhydramine-acetaminophen 1 tablet PO HS PRN 05/26/20 05/26/20 [Tylenol PM Extra Strength] losartan 25 mg PO DAILY 05/26/20 03/30/21 Allergies Allergy/AdvReac Type Severity Reaction Status Date / Time latex AdvReac Intermediate Rash Verified 03/30/21 17:58 Review of Systems Review of Systems: CONSTITUTIONAL: Denies malaise, chills, sweats, or fever. ENT: Denies swollen lips, swollen tongue CARDIOVASCULAR: Denies chest pain, palpitations, or edema. RESPIRATORY: Denies cough or dyspnea. GASTROINTESTINAL: Denies vomiting, diarrhea SKIN: Reports sting sites to bilateral hands and wrists All systems reviewed & are unremarkable except as noted in HPI and below PMFSH Past Medical History Medical History (Updated 03/30/21 @ 18:28 by Mimi Erazo NP) Degenerative disc disease Gastroesophageal reflux Hypertension Surgical History Surgical History (Updated 02/29/20 @ 16:14 by Ayaka Arreguin PA-C) History of varicose vein stripping Status post debridement Of right lower extremity ulcer x5. Family History Family History (Updated 05/26/20 @ 12:09 by Sonal Brown RN) Sibling Heart problem Brother Hypertension Heart attack Cancer Sibling Hypertension High cholesterol Sister Diabetes mellitus Cancer Pulmonary disease Mother Cancer Father Cancer Social History Social History (Updated 02/29/20 @ 16:20 by Ayaka Arreguin PA-C) Social History: Surrogate decision maker: Erich Castaneda, . Code status: Full code. Smoking status: Never smoker Alcohol intake: never Substance use: never Additional living arrangements comments: Resides in [place], [place] with her . They have 3 grown children. 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 Gender identity (if verbalized by the patient): Female Sexual Orientation (if Verbalized by the Patient): Straight or Heterosexual Spiritual care concerns: No Comments At time of signature, agree with nursing past medical, surgical, social and family history. There is no relevant family history pertinent to the presenting complaint Exam Narrative: GENERAL: Well-appearing, well-nourished, and in no acute distress. HEAD: Normocephalic, atraumatic. EYES: PERRLA, sclera clear, and EOMI. ENT: Mucous membranes moist. Oropharynx without edema, erythema or lesions. NECK: Supple. No lymphadenopathy CHEST: Clear to auscultation. No respiratory distress. HEART: Regular rate and rhythm. SKIN: Warm, dry. 6 sting sites noted to right and left hands and wrists, some with mild erythema and edema. None with induration, warmth. No stinger is
[2021-03-30 18:10] VITALS: BP 185/83; PULSE 72; RESP 16; TEMP 36.8; O2SAT 99
== END 2021-03-30 18:43 | disposition home or self-care (01) ==
PROVIDERS: Emergency Provider Nurse Practitioner; PCP Internal Medicine
DX: T63.441A Toxic effect of venom of bees, accidental (unintentional), initial encounter (principal); I10 Essential (primary) hypertension
CPT/HCPCS: 99213; G0463

== ENCOUNTER 2021-04-20 10:49 | Emergency (ER) | payer MEDICARE, OTHER, SELFPAY ==
[2021-04-20 11:05] VITALS: BP 146/76; PULSE 85; RESP 18; TEMP 36.8; O2SAT 99
--- NOTE | 2021-04-20 11:30 | ED.SKABFB ---
HPI - Skin/Abscess/Foreign Bdy General Chief complaint: Skin/Abscess/Foreign Body Stated complaint: Rash Time Seen by Provider: 04/20/21 11:30 Source: patient, family and RN notes reviewed Mode of arrival: ambulatory Limitations: no limitations History of Present Illness HPI narrative: Domenic is an 81-year-old female patient today here with complaints of rash on her neck. Patient states she was working out in the yard 2 days ago developed the rash she has taken Benadryl at home. Patient states she has used mupirocin cream. Patient states she does take Tylenol PM at bedtime. She complains of severe itching to the area. She is use ice to the area. Patient states she is had no shortness of breath no chest tightness. She already takes Yadira daily at supper. MD complaint: rash Onset (ago): day(s) Related Data Home Medications Medication Instructions Recorded Confirmed Caltrate + D3 Plus Minerals 1 tablet PO DAILY 02/11/20 05/26/20 cholecalciferol (vitamin D3) 25 mcg PO DAILY 02/11/20 05/26/20 fexofenadine [Yadira Allergy] 180 mg PO HS 02/11/20 03/30/21 fluticasone propionate 1 spray INTRANASAL DAILY 02/11/20 03/30/21 omeprazole 20 mg PO DAILY 02/11/20 03/30/21 albuterol sulfate 2 puff INHALATION QID PRN 02/29/20 03/30/21 Tumeric 500 mg PO DAILY 05/26/20 03/30/21 diphenhydramine-acetaminophen 1 tablet PO HS PRN 05/26/20 05/26/20 [Tylenol PM Extra Strength] losartan 25 mg PO DAILY 05/26/20 03/30/21 Allergies Allergy/AdvReac Type Severity Reaction Status Date / Time latex AdvReac Intermediate Rash Verified 03/30/21 17:58 Review of Systems Review of Systems: CONSTITUTIONAL: Denies body aches, fever, chills, or sweats. EYES: Denies visual changes, redness, or discharge. ENT: Denies rhinorrhea, congestion, sore throat, or otalgia. CARDIOVASCULAR: Denies chest pain, palpitations, or edema. RESPIRATORY: Denies cough or dyspnea. GASTROINTESTINAL: Denies abdominal pain, nausea, vomiting, or diarrhea. GENITOURINARY: Denies dysuria or hematuria. SKIN: + rash on neck MUSCULOSKELETAL: Denies back pain, joint pain, or myalgia. NEUROLOGIC: Denies headache, numbness, tingling, or weakness. PSYCH: Denies depression or anxiety. All systems reviewed & are unremarkable except as noted in HPI and below PMFSH Past Medical History Medical History Degenerative disc disease Gastroesophageal reflux Hypertension Surgical History Surgical History History of varicose vein stripping Status post debridement Of right lower extremity ulcer x5. Family History Family History Sibling Heart problem Brother Hypertension Heart attack Cancer Sibling Hypertension High cholesterol Sister Diabetes mellitus Cancer Pulmonary disease Mother Cancer Father Cancer Social History Social History Social History: Surrogate decision maker: Erich Castaneda, . Code status: Full code. Smoking status: Never smoker Alcohol intake: never Substance use: never Additional living arrangements comments: Resides in [place], [place] with her . They have 3 grown children. 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 Gender identity (if verbalized by the patient): Female Sexual Orientation (if Verbalized by the Patient): Straight or Heterosexual Spiritual care concerns: No Comments At time of signature, I have reviewed and agree with nursing past medical, surgical, social and family history unless otherwise noted. Please see nursing chart for further information. There is no relevant family history pertinent to the presenting complaint Exam Narrative: GENERAL: Well-appearing, well-nourished, and in no acute distress. HE
== END 2021-04-20 11:58 | disposition home or self-care (01) ==
PROVIDERS: Emergency Provider Nurse Practitioner Family
DX: L23.7 Allergic contact dermatitis due to plants, except food (principal); K21.9 Gastro-esophageal reflux disease without esophagitis; I10 Essential (primary) hypertension
CPT/HCPCS: 99213; G0463

== ENCOUNTER 2024-01-23 15:45 | Emergency (ER) | payer MEDICARE, OTHER, SELFPAY ==
--- NOTE | ~2024-01-23 | XR_ITS ---
XR knee RT min 4V Ordering provider: Dary Lizarraga PA-C History: . right knee pain . Comparison: None. FINDINGS: BONES: No acute fracture or dislocation. JOINT SPACES: Normal. SOFT TISSUES: Normal. IMPRESSION: No acute osseous abnormality right knee. Reviewed, dictated and finalized at location A.
--- NOTE | ~2024-01-23 | US_ITS ---
EXAMINATION: US venous doppler LE RT DATE: 01/23/2024 16:58 INDICATION: pain, hx DVT . TECHNIQUE: Grayscale images without and with compression and Doppler images of the right lower extrem ity veins were obtained. COMPARISON: None FINDINGS: The right common femoral vein, profunda (deep) femoral vein, femoral vein, popliteal vein, peroneal v ein, posterior tibial veins, gastrocnemius vein, and greater saphenous vein are patent. IMPRESSION: Patent right lower extremity veins. No evidence of deep venous thrombosis. Reviewed, dictated and finalized at location K.
[2024-01-23 16:04] VITALS: BP 154/89; PULSE 72; RESP 20; TEMP 36.4; O2SAT 99
--- NOTE | 2024-01-23 16:08 | ED.EXTPRO ---
HPI - Extremity Problem General Chief complaint: Extremity Problem,Nontraumatic <Dary Lizarraga PA-C - Last Filed: 01/24/24 11:14> Stated complaint: bruise on R leg, wants to r/o DVT <Dary Lizarraga PA-C - Last Filed: 01/24/24 11:14> Time Seen by Provider: 01/23/24 16:08 <Dary Lizarraga PA-C - Last Filed: 01/24/24 11:14> Focused HPI: This is an 83-year-old female that presents to the emergency department for right lower extremity pain. Ongoing over the last several days. 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 Reported noting a bruise on the anterior knee. Has pain to the posterior knee. No known injury. Denies decreased range of motion or numbness. GENERAL: Well-appearing, well-nourished, and in no acute distress. HEAD: Normocephalic, atraumatic. CHEST: Clear to auscultation. ?No respiratory distress. HEART: Regular rate and rhythm.? NEURO: ?Alert and oriented x3. Patient screened in triage and initial orders placed.? ?Additional care and disposition to be based upon?diagnostic testing and treatment. <Dary Lizarraga PA-C - Last Filed: 01/24/24 11:14> Source: patient <EITAN Valencia Last Filed: 01/23/24 20:41> Mode of arrival: ambulatory <EITAN Valencia Last Filed: 01/23/24 20:41> Limitations: no limitations <EITAN Valencia Last Filed: 01/23/24 20:41> History of Present Illness HPI Narrative: Agree with above HPI. Patient is an 83-year-old female who presents the ED with report of bruising to her right posterior knee. Patient reports she 1st noticed the bruising on . She denies any recent injury, but does note that she was recently kneeling for a prolonged period while working out in her garden. She reports mild discomfort he to posterior knee, worse with ambulation. Reports chronic swelling to lower extremities, states it does seem to be slightly worse in her right lower extremity. worse compression stockings routinely. She is on Xarelto due to history of AFib in previous DVT. She is compliant with this. She was seen at an urgent care today and referred to the ED to rule out DVT. Patient also has hx of varicose veins and multiple surgeries related to this. <Christina Thomas PA-C - Last Filed: 01/23/24 20:41> Related Data Home medications: Home Medications Medication Instructions Recorded Confirmed calcium carb 300 mg-D3 20 mcg-mag 1 tablet PO DAILY 02/11/20 04/20/21 ox 25 mg-copying machine mechanic 0.5 [id number] tablet (Caltrate-D3 Plus Minerals) cholecalciferol (vitamin D3) 25 25 mcg PO DAILY 02/11/20 04/20/21 mcg (1,000 unit) capsule fexofenadine 180 mg tablet 180 mg PO HS 02/11/20 04/20/21 (Yadira Allergy) fluticasone propionate 50 1 spray intranasal DAILY 02/11/20 04/20/21 mcg/actuation nasal spray,suspension omeprazole 20 mg capsule,delayed 20 mg PO DAILY 02/11/20 04/20/21 release albuterol sulfate 90 mcg/actuation 2 puff inhalation QID PRN 02/29/20 04/20/21 aerosol inhaler Shortness Of Breath Tumeric 500 mg PO DAILY 05/26/20 04/20/21 diphenhydramine 25 1 tablet PO HS PRN Sleep 05/26/20 04/20/21 mg-acetaminophen 500 mg tablet (Tylenol PM Extra Strength) losartan 25 mg tablet 25 mg PO DAILY 05/26/20 04/20/21 <Dary Lizarraga PA-C - Last Filed: 01/24/24 11:14> Allergies/Adverse reactions: Allergies Allergy/AdvReac Type Severity Reaction Status Date / Time latex AdvReac Intermediate Rash Verified 01/23/24 16:04 <Dary Lizarraga PA-C - Last Filed: 01/24/24 11:14> Review of Systems Review of Systems: CONSTITUTIONAL: Denies fever, chills, or sweats. MUSCULOSKELETAL: See HPI NEUROLOGIC: Denies headache, dizziness, numbness, or weakness. <Christina Thomas PA-C - Last Filed: 01/23/24 20:41> All systems reviewed & are unremarkable except as noted in HPI and below <Christina Thomas PA-C - Last Filed: 01/23/24 20:41> [facility]
--- NOTE | 2024-01-23 18:44 | ED.EXTPRO ---
HPI - Extremity Problem General Chief complaint: Extremity Problem,Nontraumatic Stated complaint: bruise on R leg, wants to r/o DVT Time Seen by Provider: 01/23/24 16:08 Source: patient Mode of arrival: ambulatory Limitations: no limitations Related Data Home Medications Medication Instructions Recorded Confirmed calcium carb 300 mg-D3 20 mcg-mag 1 tablet PO DAILY 02/11/20 04/20/21 ox 25 mg-copy editor 0.5 [id number] tablet (Caltrate-D3 Plus Minerals) cholecalciferol (vitamin D3) 25 25 mcg PO DAILY 02/11/20 04/20/21 mcg (1,000 unit) capsule fexofenadine 180 mg tablet 180 mg PO HS 02/11/20 04/20/21 (Yadira Allergy) fluticasone propionate 50 1 spray intranasal DAILY 02/11/20 04/20/21 mcg/actuation nasal spray,suspension omeprazole 20 mg capsule,delayed 20 mg PO DAILY 02/11/20 04/20/21 release albuterol sulfate 90 mcg/actuation 2 puff inhalation QID PRN 02/29/20 04/20/21 aerosol inhaler Shortness Of Breath Tumeric 500 mg PO DAILY 05/26/20 04/20/21 diphenhydramine 25 1 tablet PO HS PRN Sleep 05/26/20 04/20/21 mg-acetaminophen 500 mg tablet (Tylenol PM Extra Strength) losartan 25 mg tablet 25 mg PO DAILY 05/26/20 04/20/21 Allergies Allergy/AdvReac Type Severity Reaction Status Date / Time latex AdvReac Intermediate Rash Verified 01/23/24 16:04 [facility] Past Medical History Medical History Degenerative disc disease Gastroesophageal reflux Hypertension Surgical History Surgical History History of varicose vein stripping Status post debridement Of right lower extremity ulcer x5. Family History Family History Sibling Heart problem Brother Hypertension Heart attack Cancer Sibling Hypertension High cholesterol Sister Diabetes mellitus Cancer Pulmonary disease Mother Cancer Father Cancer Social History Social History Social History: Surrogate decision maker: Erich Castaneda, . Code status: Full code. Smoking status: Never smoker Alcohol intake: never Substance use: never Additional living arrangements comments: Resides in [place], [place] with her . They have 3 grown children. 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 Gender identity (if verbalized by the patient): Female Sexual Orientation (if Verbalized by the Patient): Straight or Heterosexual Spiritual care concerns: No Course Vital Signs Vital signs: Vital Signs Temperature 97.5 F L 01/23/24 16:04 Pulse Rate 72 01/23/24 16:04 Respiratory Rate 20 01/23/24 16:04 Blood Pressure 154/89 H 01/23/24 16:04 Pulse Oximetry 99 01/23/24 16:04 Oxygen Delivery Room Air 01/23/24 16:04 Temperature 97.5 F L 01/23/24 16:04 Pulse Rate 72 01/23/24 16:04 Respiratory Rate 20 01/23/24 16:04 Blood Pressure 154/89 H 01/23/24 16:04 Pulse Oximetry 99 01/23/24 16:04 Oxygen Delivery Room Air 01/23/24 16:04 Discharge Plan Discharge Prescriptions: No Action prednisone 10 mg Tablets,Dose Pack See Taper PO DAILY 12 Days Qty: 42 0RF Taper: Prednisone Taper from 60 mg;12 days 60 mg DAILY for 2 Days and 0 Hour 50 mg DAILY for 2 Days and 0 Hour 40 mg DAILY for 2 Days and 0 Hour 30 mg DAILY for 2 Days and 0 Hour 20 mg DAILY for 2 Days and 0 Hour 10 mg DAILY for 2 Days and 0 Hour methylprednisolone [Medrol (Remberto)] 4 mg tablets,dose pack See Rx Instructions .ROUTE .COMPLEX Qty: 21 0RF Rx Instructions: orally per package directions albuterol sulfate 90 mcg/actuation HFA aerosol inhaler 2 puff INHALATION QID PRN (Reason: Shortness Of Breath) digoxin 125 mcg (0.125 mg) Tablet 125 mcg PO QAM Qty: 30 0RF diltiazem HCl 180 mg Capsule,E
[2024-01-23 19:24] LABS: Basophils Absolute Auto 0.1 K/mm3 (0.0-0.1); Basophils Percent Auto 0.7 % (0.2-1.2); Eosinophils Absolute Auto 0.1 K/mm3 (0-0.3); Eosinophils Percent Auto 1.8 % (0-4.4); Hematocrit 26.6 % (37.0-47.0); Hemoglobin 8.5 g/dL (12.0-15.0); Immature Granulocyte Absolute 0.02 K/mm3 (0.00-0.031); Immature Granulocyte Percent A 0.3 % (0-0.5); Lymphocytes Absolute Auto 1.43 K/mm3 (0.9-3.2); Lymphocytes Percent Auto 19.5 % (18.3-44.2); Mean Corpuscular Hemoglobin 25.7 pg (26-34); Mean Corpuscular Volume 80.4 fl (80-100); Mean Platelet Volume 8.5 fl (7.4-10.4); Monocytes Absolute Auto 0.9 K/mm3 (0.1-0.6); Neutrophils Absolute Auto 4.8 K/mm3 (1.3-6.7); Neutrophils Percent Auto 65.7 % (45.5-73.1); Platelet Count Result 500 k/mm3 (150-375); Red Blood Count 3.31 M/mm3 (4.2-5.4); Red Cell Distribution Width 16.6 % (11.5-14.5); White Blood Count 7.3 K/mm3 (4.5-10.0)
[2024-01-23 19:36] LABS: INR 1.3; Prothrombin Time 16.8 Seconds (11.1-14.7)
[2024-01-23 19:37] LABS: Anion Gap 13 mmol/L (4-12); Blood Urea Nitrogen 22 mg/dL (7-17); Calcium 9.2 mg/dL (8.4-10.2); Carbon Dioxide 22 mmol/L (22-30); Chloride 97 mmol/L (98-107); Estimated CRCL calculation 36 ml/min; Estimated Glomerular Filt Rate 60; Glucose 98 mg/dL (65-110); Potassium 3.9 mmol/L (3.4-5.0); Sodium 132 mmol/L (137-145)
[2024-01-23 19:38] LABS: Partial Thromboplastin Time 49.8 Seconds (22.3-36.8)
[2024-01-23 20:10] VITALS: BP 149/69; PULSE 75; RESP 20; O2SAT 95
== END 2024-01-23 20:11 | disposition home or self-care (01) ==
PROVIDERS: Physician Assistant; Emergency Provider Physician Assistant
DX: S80.01XA Contusion of right knee, initial encounter (principal); D64.9 Anemia, unspecified; I48.91 Unspecified atrial fibrillation; I10 Essential (primary) hypertension; K21.9 Gastro-esophageal reflux disease without esophagitis; Z86.718 Personal history of other venous thrombosis and embolism; Z79.01 Long term (current) use of anticoagulants; Z79.899 Other long term (current) drug therapy; X58.XXXA Exposure to other specified factors, initial encounter
CPT/HCPCS: 36415; 73564; 80048; 85025; 85610; 85730; 93971; 99284

== ENCOUNTER 2024-02-26 21:15 | Inpatient (IN) | payer MEDICARE, OTHER, SELFPAY ==
--- NOTE | ~2024-02-26 | XR_ITS ---
XR chest 1V portable DATE: 02/26/2024 21:27 INDICATION: Shortness of breath TECHNIQUE: Portable AP chest on 02/26/2024 and 2110 hours COMPARISON: 04/14/2022 view chest FINDINGS: Heart size is within normal range. Aortic arch calcification. There is widening of the superior mediastinum on the right with some leftward tracheal deviation semi nal and consider possible goiter. No pulmonary consolidation, pleural effusion, pulmonary thousand congestion or pneumothorax is eviden t. Diffuse osteopenia. IMPRESSION: No active cardiopulmonary disease Reviewed, dictated and finalized at location J.
--- NOTE | ~2024-02-26 | CT_ITS ---
EXAMINATION: CT brain wo con DATE: 02/27/2024 00:11 INDICATION: Weakness. TECHNIQUE: Computed tomography (CT) of the head was performed without intravenous contrast. The mA wa s adjusted according to patient size. Iterative reconstruction technique was employed. The dose-lengt h product was 681.00 mGy-cm. 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 There are scattered areas of low attenuation in the cerebral white matter, which is within normal limits for the patient's age. There is no intracran ial hemorrhage, acute infarction, or abnormal intracranial mass lesion. The ventricles are normal in size. There is mild mucosal thickening in the ethmoid sinuses. There are likely changes of ocular yessica s replacement surgeries. The mastoid air cells are normal. IMPRESSION: 1. 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 Reviewed, dictated and finalized at location A.
--- NOTE | 2024-02-26 20:53 | ECG_ITS ---
Test Date: 2024-02-26 20:59:53 Measurements Intervals [place] Rate: 99 P: 61 GA: 162 QRS: 3 QRSD: 98 T: 47 QT: 321 QTc: 412 Interpretive Statements SINUS RHYTHM WITH FREQUENT ECTOPIC PREMATURE COMPLEXES IN A BIGEMINAL PATTERN NONSPECIFIC T-WAVE ABNORMALITY ABNORMAL ECG No previous ECG available for comparison Electronically Signed On 02-27-2024 10:56:52 CDT by Mitch Garcia M.D.
[2024-02-26 20:54] VITALS: BP 174/58; PULSE 89; RESP 19; TEMP 37.1; O2SAT 100
[2024-02-26 21:01] VITALS: PULSE 97; O2SAT 100
[2024-02-26 21:13] VITALS: O2SAT 100
[2024-02-26 21:16] LABS: Basophils Absolute Auto 0.1 K/mm3 (0.0-0.1); Basophils Percent Auto 0.7 % (0.2-1.2); Eosinophils Absolute Auto 0.1 K/mm3 (0-0.3); Eosinophils Percent Auto 1.2 % (0-4.4); Hematocrit 26.2 % (37.0-47.0); Hemoglobin 8.4 g/dL (12.0-15.0); Immature Granulocyte Absolute 0.02 K/mm3 (0.00-0.031); Immature Granulocyte Percent A 0.2 % (0-0.5); Lymphocytes Absolute Auto 1.46 K/mm3 (0.9-3.2); Lymphocytes Percent Auto 16.3 % (18.3-44.2); Mean Corpuscular HGB Conc 32.1 g/dl (32-36); Mean Corpuscular Hemoglobin 25.6 pg (26-34); Mean Corpuscular Volume 79.9 fl (80-100); Mean Platelet Volume 8.6 fl (7.4-10.4); Monocytes Percent Auto 10.8 % (2.6-8.5); Neutrophils Absolute Auto 6.3 K/mm3 (1.3-6.7); Neutrophils Percent Auto 70.8 % (45.5-73.1); Platelet Count Result 498 k/mm3 (150-375); Red Blood Count 3.28 M/mm3 (4.2-5.4); Red Cell Distribution Width 16.3 % (11.5-14.5)
[2024-02-26 21:43] LABS: Alanine Aminotransferase 16 U/L (6-35); Alkaline Phosphatase 82 U/L (38-126); Anion Gap 10 mmol/L (4-12); Aspartate Amino Transferase 26 U/L (14-36); Bilirubin,Total 0.2 mg/dL (0.2-1.3); Blood Urea Nitrogen 27 mg/dL (7-17); Calcium 8.8 mg/dL (8.4-10.2); Carbon Dioxide 22 mmol/L (22-30); Chloride 100 mmol/L (98-107); Estimated CRCL calculation 36 ml/min; Estimated Glomerular Filt Rate 53; Glucose 136 mg/dL (65-110); Potassium 3.3 mmol/L (3.4-5.0); Sodium 132 mmol/L (137-145)
[2024-02-26 23:13] VITALS: BP 135/78; PULSE 98; RESP 16; TEMP 37; O2SAT 97
[2024-02-26] MEDS: POTASSIUM CHLORIDE 20 MEQ PACKET (FOR LIQUID) 40 MEQ PO (23:27)
[2024-02-26 23:52] LABS: Lipase 74 U/L (23-300); Magnesium 1.7 mg/dL (1.6-2.3); Phosphorus 3.7 mg/dL (2.5-4.5)
[2024-02-26 23:56] LABS: INR 3.3; Prothrombin Time 34.2 Seconds (11.1-14.7)
[2024-02-27] VITALS (13 sets, daily range): BP systolic 132–172; BP diastolic 57–75; PULSE 68–98; RESP 16–19; TEMP 36.1–36.7; O2SAT 99–100
--- NOTE | 2024-02-27 | ECHO_ITS ---
Patient Info Name: Priyanka Castaneda Age: 84 years : 1940 Gender: Female Ht: 65 in Wt: 164 lbs BSA: 1.86 m2 HR: 66 bpm BP: 161 / 68 mmHg Heart Rhythm: Sinus Rhythm Technical Quality: Fair Exam Date: 02/27/2024 11:44 AM Exam Location: Echo Lab Patient Status: Inpatient Admit Date: 02/27/2024 Staff Ordering Physician: Jennie Hodges DO Financial Systems Manager: Sujatha Whitman PATRICK Attending Provider: Jennie Hodges DO Referring Physician: Tracie REHMAN; Exam Type: CA echo doppler color flow Study Info Indications R06.00 - Dyspnea, unspecified Complete two-dimensional, color flow and Doppler transthoracic echocardiogram is performed. Summary 1. Left ventricular chamber dimension is normal. 2. Left ventricular systolic function is normal, estimated at 55-60%. 3. The left ventricular diastolic function is grade I diastolic dysfunction. 4. Right ventricular systolic function is normal. 5. Left atrial chamber dimension is moderately enlarged. 6. There is mild mitral valve regurgitation. 7. There is mild tricuspid valve regurgitation. Left Ventricle Left ventricular chamber dimension is normal. Left ventricular systolic function is normal, estimated at 55-60%. There is no increased left ventricular wall thickness. The left ventricular diastolic function is grade I diastolic dysfunction. Right Ventricle Right ventricular chamber dimension is normal. Right ventricular systolic function is normal. Left Atria Left atrial chamber dimension is moderately enlarged. Right Atria Right atrial chamber dimension is normal. Atrial Septum Intact interatrial septum visualized by color flow imaging. Aortic Valve The aortic valve is trileaflet. There is no aortic valve stenosis. There is no aortic valve regurgitation. There is mild aortic valve calcification. Pulmonic Valve The pulmonic valve is not well visualized. There is trace pulmonic regurgitation. Mitral Valve There is mild mitral valve regurgitation. The mitral valve annulus is mildly calcified. Tricuspid Valve There is mild tricuspid valve regurgitation. Pericardium/Pleural There is no pericardial effusion. Inferior Vena Cava Normal inferior vena cava with >50% collapse upon inspiration consistent with normal right atrial pressure, 3 mmHg. Aorta The aortic root size at the sinus of Valsalva is normal. Left Ventricular Outflow Tract Name Value Normal LVOT 2D LVOT Diameter 2.1 cm LVOT Doppler LVOT Peak Gradient 7 mmHg LVOT Mean Gradient 3 mmHg LVOT VTI 34 cm LVOT VTI/AV VTI Ratio 0.8 LVOT Stroke Volume 119 ml LVOT CO 4.2 l/min LVOT CI 2.3 l/min/m2 Pulmonic Valve Name Value Normal PV Doppler PV Peak Gradient 2 mmHg PV Regurgitation Dopp
[2024-02-27 00:05] LABS: NT Pro B Type Natriuretic Pept 984 pg/mL (19.9-100); Troponin I < 0.012 ng/mL (0.000-0.034)
[2024-02-27 00:21] LABS: Lactic Acid Reflex 1.2 mmol/L (0.7-2.0)
[2024-02-27 01:06] LABS: Influenza A QL RT-PCR Negative (Negative); Influenza B QL RT-PCR Negative (Negative); RSV RNA, RT-PCR Negative (Negative); SARS-CoV-2 RNA PCR Negative (Negative)
[2024-02-27 01:14] LABS: Add Urine Microscopic? YES; Appearance Urine Turbid (Clear); Bacteria Urine 4+ /hpf; Bilirubin Urine Negative (Negative); Blood Urine 1+ (Negative); Color Urine Yellow (Yellow); Glucose Urine UA Negative (Negative); Ketones Urine Negative (Negative); Leukocyte Esterase Ur 3+ LEU/UL (Negative); Nitrate Urine Positive (Negative); Non Pathogenic Casts 0-2; Protein Urine Negative (Negative); RBC Urine 0-2 /hpf (0-2); Specific Grav Ur 1.009 (1.001-1.035); Squamous Epithelial Cell Urine None Seen /hpf (Few); Urobilinogen Urine 0.2 mg/dL (<2.0); WBC Urine >100 /hpf (0-3); pH Urine 6.5 (5.0-9.0)
--- NOTE | 2024-02-27 01:44 | ED.GENADULT ---
HPI - General Adult General Chief complaint: Shortness of Breath/Dyspnea Stated complaint: sob Time Seen by Provider: 02/26/24 22:49 History of Present Illness HPI narrative: This is an 84-year-old female presenting ED with chief complaint of generalized weakness. Family notes that over the last several weeks she has become progressively more weak. She has dyspnea on exertion and low energy. Patient was having difficulty ambulating and when her went out to lunch she could barely walk without holding onto him. She has not had any falls. She denies fevers chills chest pain difficulty breathing or abdominal pain. She reports having to urinate frequently at night, but no dysuria or urgency. Patient was recently referred to a packaging operator and is receiving iron injections for anemia. She is on anticoagulation for atrial fibrillation. No melanotic or bloody stools. Related Data Home Medications Medication Instructions Recorded Confirmed calcium carb 300 mg-D3 20 mcg-mag 1 tablet PO DAILY 02/11/20 04/20/21 ox 25 mg-marketing copywriter 0.5 [id number] tablet (Caltrate-D3 Plus Minerals) cholecalciferol (vitamin D3) 25 25 mcg PO DAILY 02/11/20 04/20/21 mcg (1,000 unit) capsule fexofenadine 180 mg tablet 180 mg PO HS 02/11/20 04/20/21 ([facility]) fluticasone propionate 50 1 spray intranasal DAILY 02/11/20 04/20/21 mcg/actuation nasal spray,suspension omeprazole 20 mg capsule,delayed 20 mg PO DAILY 02/11/20 04/20/21 release albuterol sulfate 90 mcg/actuation 2 puff inhalation QID PRN 02/29/20 04/20/21 aerosol inhaler Shortness Of Breath Tumeric 500 mg PO DAILY 05/26/20 04/20/21 diphenhydramine 25 1 tablet PO HS PRN Sleep 05/26/20 04/20/21 mg-acetaminophen 500 mg tablet (Tylenol PM Extra Strength) losartan 25 mg tablet 25 mg PO DAILY 05/26/20 04/20/21 Allergies Allergy/AdvReac Type Severity Reaction Status Date / Time latex AdvReac Intermediate Rash Verified 01/23/24 16:04 [facility] Past Medical History Medical History Degenerative disc disease Gastroesophageal reflux Hypertension Surgical History Surgical History History of varicose vein stripping Status post debridement Of right lower extremity ulcer x5. Family History Family History Sibling Heart problem Brother Hypertension Heart attack Cancer Sibling Hypertension High cholesterol Sister Diabetes mellitus Cancer Pulmonary disease Mother Cancer Father Cancer Social History Social History Social History: Surrogate decision maker: Erich Castaneda, . Code status: Full code. Smoking status: Never smoker Alcohol intake: never Substance use: never Additional living arrangements comments: Resides in [place], [place] with her . They have 3 grown children. 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 Gender identity (if verbalized by the patient): Female Sexual Orientation (if Verbalized by the Patient): Straight or Heterosexual Spiritual care concerns: No Exam Narrative: APPEARANCE: Frail-appearing Head: atraumatic. EYES: EOMI, pale conjunctiva NOSE: Atraumatic NECK: Trachea midline RESPIRATORY: No increased rate of breathing clear auscultation CARDIOVASCULAR: RRR, ABDOMINAL: Non-distended soft nontender rebound CVA tenderness MUSCULOSKELETAl: No obvious deformities NEURO: Alert. Moving 4/4 extremities SKIN:: Warm, dry. Normal color PSYCHIATRIC: Normal affect Course Vital Signs Vital signs: Vital Signs Temperature 98.7 F 02/26/24 20:54 Pulse Rate 89 02/26/24 20:54 Respiratory Rate 19 02/26/24 20:54 Blood Pressure 174/58 H 02/26/24 20:54 Pulse Oximetry 100 02/26/24 20:54 O
[2024-02-27] MEDS: SODIUM CHLORIDE 0.9% IV 1,000 ML 999 ML IV CONT (01:53)
--- NOTE | 2024-02-27 02:10 | ECG_ITS ---
Test Date: 2024-02-27 02:29:13 Measurements Intervals [place] Rate: 99 P: 40 NV: 164 QRS: -5 QRSD: 90 T: 50 QT: 343 QTc: 440 Interpretive Statements SINUS RHYTHM WITH FREQUENT ECTOPIC PREMATURE COMPLEXES IN A BIGEMINAL PATTERN NONSPECIFIC T-WAVE ABNORMALITY ABNORMAL ECG Electronically Signed On 02-27-2024 10:59:46 CDT by Mitch Garcia M.D.
[2024-02-27] MEDS: LACTATED RINGERS 1,000 ML 75 ML IV CONT ×2 (02:48→17:02)
[2024-02-27 02:50] LABS: Troponin I < 0.012 ng/mL (0.000-0.034)
--- NOTE | 2024-02-27 03:26 | PM.IMHP ---
H&P: HPI History of Present Illness Date/Time: 02/27/24 03:26 Chief Complaint: Weakness and shortness of breath Narrative: 84-year-old female with a past medical history of atrial fibrillation on Xarelto, essential hypertension, hypothyroidism and iron deficiency anemia who presented to the ER from home via EMS due to weakness and shortness of breath on and off for the last 3 weeks. She reports that her breathing never returned to normal after she had COVID in 2019. She was following with pharmacy resident who told her she had scarring from her COVID infection. She did undergo pulmonary rehab immediately after COVID infection. She has not been having any cough or congestion. Patient was recently diagnosed with iron deficiency anemia. She was post to start iron infusions this coming Tuesday. It was suspected she has secondary losses from her use of Xarelto. She is supposed to have outpatient colonoscopy and EGD after she has received her iron infusions. Her Hemoccult stool has been negative. She denies any hematochezia or melena. She has been having dyspnea on exertion and fatigue. Yesterday she and her went to lunch the patient could not walk without holding onto her . She has not had any falls. She has not been having any dysuria, urgency or fevers but her UA is suggestive of UTI. She has been having increased nocturnal urinary frequency for the last week or so. With some increased urgency but urgency is only at night. It is been accompanied by more profound fatigue over the last week or so. She has not had any hematochezia or melena. Her Hemoccult on rectal exam in the ER was negative. Her hemoglobin in the ER was stable compared to last month. She reports that she tries to drink plenty of fluids. She states that her appetite is too good. She reports that she has been short of breath with exertion since she had COVID. But over the last several months if not longer sensation of palpitations when she has her shortness of breath with exertion. This sensation will also be accompanied by lightheadedness and at times dizziness. She is intermittently getting nauseated with these events. She denies any orthopnea or paroxysmal nocturnal dyspnea. She has not noticed any increased leg swelling. She reports that her clinical material handler talked about possibly stopping her Xarelto. It is unclear if it is because she has had no documented episodes of AFib since her infection with COVID or if her clinical material handler was talking about discontinuing Xarelto due to her age. She reports that has had a 30 day event monitor a couple of years ago. And she had a event monitor for about 2 weeks last year. She does not know the results of those studies. She states that she was supposed to follow-up with her clinical material handler in the next couple of months. She denies any chest pain or diaphoresis. Review of Systems Review of Systems: 12 systems were reviewed with pertinent positives and negatives per HPI. Except as documented in the HPI, all other systems were reviewed and are negative. [facility] Past Medical History Medical History (Updated 02/27/24 @ 03:47 by Jennie Hodges DO) Chronic anticoagulation Chronic hyponatremia Chronic iron deficiency anemia Degenerative disc disease Diastolic dysfunction Echo February 2020: EF 60 65% grade 1 diastolic dysfunction, mild left atrial enlargement mild increased left ventricular wall thickness Gastroesophageal reflux Hypertension Hypothyroidism Paroxysmal atrial fibrillation (02/2020) Onset occurred with active COVID infection Surgical History Surgical History (Updated 02/27/24 @ 07:44 by Jennie Hodges DO) History of varicose vein stripping Status post cataract extraction of both eyes with insertion of intraocular lens Status post debridement Of right lower extremity ulcer x5. Family History Family History Sibling Heart problem Broth
[2024-02-27 05:38] LABS: Hematocrit 23.8 % (37.0-47.0); Hemoglobin 7.7 g/dL (12.0-15.0); Mean Corpuscular HGB Conc 32.4 g/dl (32-36); Mean Corpuscular Volume 80.4 fl (80-100); Mean Platelet Volume 8.7 fl (7.4-10.4); Platelet Count Result 460 k/mm3 (150-375); Red Blood Count 2.96 M/mm3 (4.2-5.4); Red Cell Distribution Width 16.3 % (11.5-14.5); White Blood Count 8.8 K/mm3 (4.5-10.0)
[2024-02-27] MEDS: LEVOTHYROXINE SODIUM 88 MCG TABLET PO (05:47)
[2024-02-27 05:50] LABS: INR 2.1; Prothrombin Time 23.8 Seconds (11.1-14.7)
[2024-02-27 05:55] LABS: Anion Gap 9 mmol/L (4-12); Blood Urea Nitrogen 21 mg/dL (7-17); Calcium 8.4 mg/dL (8.4-10.2); Carbon Dioxide 19 mmol/L (22-30); Chloride 103 mmol/L (98-107); Estimated CRCL calculation 44 ml/min; Estimated Glomerular Filt Rate > 60; Glucose 95 mg/dL (65-110); Potassium 3.7 mmol/L (3.4-5.0); Sodium 131 mmol/L (137-145)
[2024-02-27] MEDS: PANTOPRAZOLE 40 MG TABLET PO (09:06)
[2024-02-27] MEDS: FLUTICASONE PROPIONATE 0.05% NA SPR 16 GM BTL (*BKC) 1 SPRAY NASAL (09:06)
[2024-02-27] MEDS: hydroCHLOROthiazide 25 MG TABLET PO (09:06)
[2024-02-27] MEDS: LOSARTAN POTASSIUM 100 MG TABLET PO (09:06)
[2024-02-27] MEDS: CHOLECALCIFEROL 1,000 UNITS TABLET 1000 UNITS PO (09:06)
--- NOTE | 2024-02-27 09:09 | PM.IMPN ---
Progress Note: A&P Assessment and Plan (1) UTI (urinary tract infection): Qualifiers: Hematuria presence: without hematuria Urinary tract infection type: acute cystitis Qualified Code(s): N30.00 - Acute cystitis without hematuria Code(s): N39.0 - Urinary tract infection, site not specified Status: Acute Assessment and Plan: 02/27/24: UA showing 1+ urine blood, positive nitrate, 3+ leukocytes, greater than 100 urine wbc's, 4+ urine bacteria. Urine and blood cultures were obtained and are pending Continue Rocephin Initial white blood count 9.0 (2) Generalized weakness: Code(s): R53.1 - Weakness Status: Acute Assessment and Plan: 02/27/24: Likely secondary to UTI versus iron deficiency anemia Patient noticed worsening weakness over the last 3 weeks without any fall history PT and OT ordered Continue fall precautions Echo ordered (3) Chronic hyponatremia: Code(s): E87.1 - Hypo-osmolality and hyponatremia Status: Acute Assessment and Plan: 02/27/24: Sodium 130 Hyponatremia appears to be chronic Continue to trend (4) Acute hypokalemia: Code(s): E87.6 - Hypokalemia Status: Acute Assessment and Plan: 02/27/24: Initial potassium 3.3 Patient was given 40 mEq of potassium in the ED Repeat potassium this morning was 3.7, no further potassium required Continue to trend (5) Hypothyroidism: Qualifiers: Hypothyroidism type: unspecified Qualified Code(s): E03.9 - Hypothyroidism, unspecified Code(s): E03.9 - Hypothyroidism, unspecified Status: Acute Assessment and Plan: 02/27/24: TSH WNL Continue Synthroid (6) Chronic iron deficiency anemia: Code(s): D50.9 - Iron deficiency anemia, unspecified Status: Acute Assessment and Plan: 02/27/24: Recently diagnosed with iron deficiency anemia, likely losses secondary from use of Xarelto Hemoglobin 7.7 this morning She is scheduled to start iron infusions this Tuesday plans for outpatient colonoscopy EGD after her iron infusions Stool was Hemoccult negative (7) Paroxysmal atrial fibrillation: Onset Date: 02/2020 Code(s): I48.0 - Paroxysmal atrial fibrillation Status: Acute Assessment and Plan: 02/27/24: Continue metoprolol and Xarelto Time Spent With Patient Time with patient: Greater than 35 minutes Subjective Date/time seen: 02/27/24 09:09 Interval history: Interval history: This is an 84-year-old female presented to the hospital on 02/27/2024 with complaints of weakness and shortness of breath. Workup in the hospital included a chest x-ray which was negative. 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 Initial labs showed a normal white blood cell count of 9.0, hemoglobin 8.4, sodium 132, potassium 3.3, EGFR 53, proBNP 984, TSH 1.42. UA was obtained and showed 1+ urine blood, positive nitrate, 3+ leukocyte, greater than 100 urine WBC, 4+ bacteria. Respiratory panel was obtained and was negative for influenza a and B, RSV, COVID. Blood and urine cultures were obtained and are pending. EKG showing sinus rhythm with PACs with a rate of 99, QTC 440. Patient was given 1 L of normal saline, 40 mEq of potassium, and Rocephin while in the ED. Subjective: 02/27/24: Patient denies any fever, chills, vomiting, diarrhea, abdominal pain, chest pain. Patient endorses fatigue, shortness of breath with exertion, and nausea. Labs, cultures, and imaging reviewed. Review of Systems Review of Systems: All systems reviewed & are unremarkable except as noted in HPI and below Constitutional: Constitutional: Reports as per HPI and Reports no additional constitutional complaints Eyes: Eyes: Reports as per HPI and Reports no additional eye complaints ENT: Reports system reviewed and no additional complaints, except as documented and Reports as per HPI Cardiovascular: Cardiovascular: Reports as per HPI
[2024-02-27] MEDS: hydrALAZINE HCL 20 MG/ML VIAL 10 MG IV PUSH (15:50)
[2024-02-27] MEDS: RIVAROXABAN 20 MG TABLET PO (17:05)
[2024-02-27] MEDS: LORATADINE 10 MG TABLET PO (20:21)
[2024-02-27] MEDS: METOPROLOL SUCCINATE EXT REL 12.5 MG TABCR PO (20:21)
[2024-02-28] VITALS (12 sets, daily range): BP systolic 157–182; BP diastolic 66–74; PULSE 63–76; RESP 14–20; TEMP 36.5–37.1; O2SAT 98–100
[2024-02-28] MEDS: LEVOTHYROXINE SODIUM 88 MCG TABLET PO (04:41)
[2024-02-28] MEDS: hydroCHLOROthiazide 25 MG TABLET PO (08:33)
[2024-02-28] MEDS: CHOLECALCIFEROL 1,000 UNITS TABLET 1000 UNITS PO (08:33)
[2024-02-28] MEDS: FLUTICASONE PROPIONATE 0.05% NA SPR 16 GM BTL (*BKC) 1 SPRAY NASAL (08:33)
[2024-02-28] MEDS: LOSARTAN POTASSIUM 100 MG TABLET PO (08:33)
[2024-02-28] MEDS: PANTOPRAZOLE 40 MG TABLET PO (08:34)
[2024-02-28] MEDS: LACTATED RINGERS 1,000 ML 75 ML IV CONT (10:40)
--- NOTE | 2024-02-28 12:26 | P.PNIM_ITS ---
Progress Note: A&P Assessment and Plan (1) UTI (urinary tract infection): Qualifiers: Hematuria presence: without hematuria Urinary tract infection type: acute cystitis Qualified Code(s): N30.00 - Acute cystitis without hematuria Code(s): N39.0 - Urinary tract infection, site not specified Status: Acute Assessment and Plan: 02/27/24: * UA showing 1+ urine blood, positive nitrate, 3+ leukocytes, greater than 100 urine wbc's, 4+ urine bacteria. * Urine and blood cultures were obtained and are pending * Continue Rocephin * Initial white blood count 9.0 02/28/24: * Urine culture is showing gram negative bacilli on preliminary * Blood culture showing no growth to date on preliminary read * Continue Rocephin (2) Generalized weakness: Code(s): R53.1 - Weakness Status: Acute Assessment and Plan: 02/27/24: * Likely secondary to UTI versus iron deficiency anemia * Patient noticed worsening weakness over the last 3 weeks without any fall history * PT and OT ordered * Continue fall precautions * Echo ordered 02/28/24: * Echo showed normal LV systolic function with an estimated EF of 55-60%, grade 1 diastolic dysfunction, left atrial chamber moderately enlarged. * Continue PT and OT * Continue fall precautions (3) Chronic hyponatremia: Code(s): E87.1 - Hypo-osmolality and hyponatremia Status: Acute Assessment and Plan: 02/27/24: * Sodium 132 * Hyponatremia appears to be chronic * Continue to trend 02/28/24: * Sodium 130 * Continue to trend (4) Acute hypokalemia: Code(s): E87.6 - Hypokalemia Status: Acute Assessment and Plan: 02/27/24: * Initial potassium 3.3 * Patient was given 40 mEq of potassium in the ED * Repeat potassium this morning was 3.7, no further potassium required * Continue to trend 02/28/24: * Potassium 3.4 * Continue to trend (5) Hypothyroidism: Qualifiers: Hypothyroidism type: unspecified Qualified Code(s): E03.9 - Hypothyroidism, unspecified Code(s): E03.9 - Hypothyroidism, unspecified Status: Acute Assessment and Plan: 02/27/24: * TSH WNL * Continue Synthroid 02/28/24: * No change to current treatment plan (6) Chronic iron deficiency anemia: Code(s): D50.9 - Iron deficiency anemia, unspecified Status: Acute Assessment and Plan: 02/27/24: * Recently diagnosed with iron deficiency anemia, likely losses secondary from use of Xarelto * Hemoglobin 7.7 this morning * She is scheduled to start iron infusions this Tuesday plans for outpatient colonoscopy EGD after her iron infusions * Stool was Hemoccult negative 02/28/24: * Hgb 8.7 * continue to monitor (7) Paroxysmal atrial fibrillation: Onset Date: 02/2020 Code(s): I48.0 - Paroxysmal atrial fibrillation Status: Acute Assessment and Plan: 02/27/24: * Continue metoprolol and Xarelto 02/28/24: * No change to current treatment plan Time Spent With Patient Time with patient: 25 - 35 minutes Subjective Date/time seen: 02/28/24 12:26 Interval history: Interval history: This is an 84-year-old female presented to the hospital on 02/27/2024 with complaints of weakness and shortness of breath. Workup in the hospital included a chest x-ray which was negative. 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 Initial labs showed a normal white blood cell count of 9.0, hemoglobin 8.4, sodium 132, potassium 3.3, EGFR 53,
--- NOTE | 2024-02-28 12:26 | PM.IMPN ---
Progress Note: A&P Assessment and Plan (1) UTI (urinary tract infection): Qualifiers: Hematuria presence: without hematuria Urinary tract infection type: acute cystitis Qualified Code(s): N30.00 - Acute cystitis without hematuria Code(s): N39.0 - Urinary tract infection, site not specified Status: Acute Assessment and Plan: 02/27/24: UA showing 1+ urine blood, positive nitrate, 3+ leukocytes, greater than 100 urine wbc's, 4+ urine bacteria. Urine and blood cultures were obtained and are pending Continue Rocephin Initial white blood count 9.0 02/28/24: Urine culture is showing gram negative bacilli on preliminary Blood culture showing no growth to date on preliminary read Continue Rocephin (2) Generalized weakness: Code(s): R53.1 - Weakness Status: Acute Assessment and Plan: 02/27/24: Likely secondary to UTI versus iron deficiency anemia Patient noticed worsening weakness over the last 3 weeks without any fall history PT and OT ordered Continue fall precautions Echo ordered 02/28/24: Echo showed normal LV systolic function with an estimated EF of 55-60%, grade 1 diastolic dysfunction, left atrial chamber moderately enlarged. Continue PT and OT Continue fall precautions (3) Chronic hyponatremia: Code(s): E87.1 - Hypo-osmolality and hyponatremia Status: Acute Assessment and Plan: 02/27/24: Sodium 132 Hyponatremia appears to be chronic Continue to trend 02/28/24: Sodium 130 Continue to trend (4) Acute hypokalemia: Code(s): E87.6 - Hypokalemia Status: Acute Assessment and Plan: 02/27/24: Initial potassium 3.3 Patient was given 40 mEq of potassium in the ED Repeat potassium this morning was 3.7, no further potassium required Continue to trend 02/28/24: Potassium 3.4 Continue to trend (5) Hypothyroidism: Qualifiers: Hypothyroidism type: unspecified Qualified Code(s): E03.9 - Hypothyroidism, unspecified Code(s): E03.9 - Hypothyroidism, unspecified Status: Acute Assessment and Plan: 02/27/24: TSH WNL Continue Synthroid 02/28/24: No change to current treatment plan (6) Chronic iron deficiency anemia: Code(s): D50.9 - Iron deficiency anemia, unspecified Status: Acute Assessment and Plan: 02/27/24: Recently diagnosed with iron deficiency anemia, likely losses secondary from use of Xarelto Hemoglobin 7.7 this morning She is scheduled to start iron infusions this Tuesday plans for outpatient colonoscopy EGD after her iron infusions Stool was Hemoccult negative 02/28/24: Hgb 8.7 continue to monitor (7) Paroxysmal atrial fibrillation: Onset Date: 02/2020 Code(s): I48.0 - Paroxysmal atrial fibrillation Status: Acute Assessment and Plan: 02/27/24: Continue metoprolol and Xarelto 02/28/24: No change to current treatment plan Time Spent With Patient Time with patient: 25 - 35 minutes Subjective Date/time seen: 02/28/24 12:26 Interval history: Interval history: This is an 84-year-old female presented to the hospital on 02/27/2024 with complaints of weakness and shortness of breath. Workup in the hospital included a chest x-ray which was negative. 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 Initial labs showed a normal white blood cell count of 9.0, hemoglobin 8.4, sodium 132, potassium 3.3, EGFR 53, proBNP 984, TSH 1.42. UA was obtained and showed 1+ urine blood, positive nitrate, 3+ leukocyte, greater than 100 urine WBC, 4+ bacteria. Respiratory panel was obtained and was negative for influenza a and B, RSV, COVID. Blood and urine cultures were obtained and are pending. EKG showing sinus rhythm with PACs with a rate of 99, QTC 440. Patient was given 1 L of normal saline, 40 mEq of potassium, and Rocephin while in the ED. Subjective: 02/28/24: Patient reports that she did not sleep very well last ni
[2024-02-28 13:13] LABS: Basophils Absolute Auto 0.1 K/mm3 (0.0-0.1); Basophils Percent Auto 0.6 % (0.2-1.2); Eosinophils Absolute Auto 0.2 K/mm3 (0-0.3); Eosinophils Percent Auto 2.5 % (0-4.4); Hemoglobin 8.7 g/dL (12.0-15.0); Immature Granulocyte Absolute 0.02 K/mm3 (0.00-0.031); Immature Granulocyte Percent A 0.2 % (0-0.5); Lymphocytes Absolute Auto 1.34 K/mm3 (0.9-3.2); Lymphocytes Percent Auto 15.9 % (18.3-44.2); Mean Corpuscular HGB Conc 32.2 g/dl (32-36); Mean Corpuscular Hemoglobin 26.2 pg (26-34); Mean Corpuscular Volume 81.3 fl (80-100); Mean Platelet Volume 8.8 fl (7.4-10.4); Monocytes Absolute Auto 0.9 K/mm3 (0.1-0.6); Monocytes Percent Auto 10.1 % (2.6-8.5); Neutrophils Percent Auto 70.7 % (45.5-73.1); Platelet Count Result 515 k/mm3 (150-375); Red Blood Count 3.32 M/mm3 (4.2-5.4); Red Cell Distribution Width 16.4 % (11.5-14.5); White Blood Count 8.5 K/mm3 (4.5-10.0)
[2024-02-28 13:28] LABS: Alanine Aminotransferase 15 U/L (6-35); Albumin Level 3.9 g/dL (3.5-5.1); Alkaline Phosphatase 53 U/L (38-126); Anion Gap 13 mmol/L (4-12); Aspartate Amino Transferase 25 U/L (14-36); Bilirubin,Total 0.4 mg/dL (0.2-1.3); Blood Urea Nitrogen 12 mg/dL (7-17); Calcium 8.7 mg/dL (8.4-10.2); Carbon Dioxide 23 mmol/L (22-30); Chloride 94 mmol/L (98-107); Estimated CRCL calculation 44 ml/min; Estimated Glomerular Filt Rate > 60; Glucose 108 mg/dL (65-110); Potassium 3.4 mmol/L (3.4-5.0); Sodium 130 mmol/L (137-145)
[2024-02-28] MEDS: RIVAROXABAN 20 MG TABLET PO (17:02)
[2024-02-28] MEDS: MIRTAZAPINE 7.5 MG TABLET PO (20:56)
[2024-02-28] MEDS: METOPROLOL SUCCINATE EXT REL 12.5 MG TABCR PO (20:56)
[2024-02-28] MEDS: LORATADINE 10 MG TABLET PO (20:57)
[2024-02-28] MEDS: hydrALAZINE HCL 20 MG/ML VIAL 10 MG IV PUSH (21:04)
[2024-02-29] VITALS (11 sets, daily range): BP systolic 125–166; BP diastolic 55–80; PULSE 65–87; RESP 16–18; TEMP 36.4–36.6; O2SAT 98–99
[2024-02-29] MEDS: LACTATED RINGERS 1,000 ML 75 ML IV CONT ×2 (02:00→16:45)
[2024-02-29 05:07] LABS: Basophils Percent Auto 0.6 % (0.2-1.2); Eosinophils Absolute Auto 0.3 K/mm3 (0-0.3); Eosinophils Percent Auto 3.6 % (0-4.4); Hematocrit 22.7 % (37.0-47.0); Hemoglobin 7.4 g/dL (12.0-15.0); Immature Granulocyte Absolute 0.03 K/mm3 (0.00-0.031); Immature Granulocyte Percent A 0.4 % (0-0.5); Lymphocytes Absolute Auto 1.32 K/mm3 (0.9-3.2); Lymphocytes Percent Auto 18.3 % (18.3-44.2); Mean Corpuscular HGB Conc 32.6 g/dl (32-36); Mean Corpuscular Volume 79.6 fl (80-100); Mean Platelet Volume 8.3 fl (7.4-10.4); Monocytes Percent Auto 13.2 % (2.6-8.5); Neutrophils Absolute Auto 4.6 K/mm3 (1.3-6.7); Neutrophils Percent Auto 63.9 % (45.5-73.1); Platelet Count Result 417 k/mm3 (150-375); Red Blood Count 2.85 M/mm3 (4.2-5.4); White Blood Count 7.2 K/mm3 (4.5-10.0)
[2024-02-29 05:18] LABS: Alanine Aminotransferase 13 U/L (6-35); Albumin Level 3.2 g/dL (3.5-5.1); Alkaline Phosphatase 48 U/L (38-126); Anion Gap 9 mmol/L (4-12); Aspartate Amino Transferase 21 U/L (14-36); Bilirubin,Total 0.3 mg/dL (0.2-1.3); Blood Urea Nitrogen 12 mg/dL (7-17); Calcium 8.4 mg/dL (8.4-10.2); Carbon Dioxide 23 mmol/L (22-30); Chloride 96 mmol/L (98-107); Estimated CRCL calculation 44 ml/min; Estimated Glomerular Filt Rate > 60; Glucose 83 mg/dL (65-110); Potassium 3.8 mmol/L (3.4-5.0); Sodium 128 mmol/L (137-145)
[2024-02-29] MEDS: LEVOTHYROXINE SODIUM 88 MCG TABLET PO (06:24)
[2024-02-29] MEDS: PANTOPRAZOLE 40 MG TABLET PO (09:10)
[2024-02-29] MEDS: FLUTICASONE PROPIONATE 0.05% NA SPR 16 GM BTL (*BKC) 1 SPRAY NASAL (09:10)
[2024-02-29] MEDS: hydroCHLOROthiazide 25 MG TABLET PO (09:10)
[2024-02-29] MEDS: LOSARTAN POTASSIUM 100 MG TABLET PO (09:10)
[2024-02-29] MEDS: CHOLECALCIFEROL 1,000 UNITS TABLET 1000 UNITS PO (09:10)
[2024-02-29] MEDS: IRON SUCROSE COMPLEX 200 MG, IRON SUCROSE COMPLEX 100 MG in SODIUM CHLORIDE 0.9% IV 250 ML 176.67 MG IVPB (12:51)
[2024-02-29] MEDS: RIVAROXABAN 20 MG TABLET PO (16:41)
[2024-02-29] MEDS: MELATONIN 3 MG TABLET PO (21:46)
[2024-02-29] MEDS: METOPROLOL SUCCINATE EXT REL 12.5 MG TABCR PO (21:46)
[2024-02-29] MEDS: LORATADINE 10 MG TABLET PO (21:46)
[2024-02-29] MEDS: SULFAMETHOXAZOLE/TRIMETHOPRIM 800/160 MG DS TABLET 1 TAB PO (21:46)
[2024-03-01] VITALS: PULSE 71
[2024-03-01 04:00] VITALS: PULSE 62
[2024-03-01 06:00] VITALS: BP 134/66; PULSE 64; RESP 18; TEMP 36.5; O2SAT 96
[2024-03-01 06:02] LABS: Basophils Absolute Auto 0.1 K/mm3 (0.0-0.1); Basophils Percent Auto 0.7 % (0.2-1.2); Eosinophils Absolute Auto 0.3 K/mm3 (0-0.3); Eosinophils Percent Auto 4.7 % (0-4.4); Hematocrit 24.2 % (37.0-47.0); Hemoglobin 7.8 g/dL (12.0-15.0); Immature Granulocyte Absolute 0.03 K/mm3 (0.00-0.031); Immature Granulocyte Percent A 0.4 % (0-0.5); Lymphocytes Absolute Auto 1.23 K/mm3 (0.9-3.2); Lymphocytes Percent Auto 16.9 % (18.3-44.2); Mean Corpuscular HGB Conc 32.2 g/dl (32-36); Mean Corpuscular Hemoglobin 25.7 pg (26-34); Mean Corpuscular Volume 79.9 fl (80-100); Monocytes Absolute Auto 0.8 K/mm3 (0.1-0.6); Monocytes Percent Auto 11.4 % (2.6-8.5); Neutrophils Absolute Auto 4.8 K/mm3 (1.3-6.7); Neutrophils Percent Auto 65.9 % (45.5-73.1); Platelet Count Result 492 k/mm3 (150-375); Red Blood Count 3.03 M/mm3 (4.2-5.4); Red Cell Distribution Width 16.2 % (11.5-14.5); White Blood Count 7.3 K/mm3 (4.5-10.0)
[2024-03-01 06:11] LABS: Alanine Aminotransferase 13 U/L (6-35); Albumin Level 3.2 g/dL (3.5-5.1); Alkaline Phosphatase 51 U/L (38-126); Anion Gap 7 mmol/L (4-12); Aspartate Amino Transferase 21 U/L (14-36); Bilirubin,Total 0.2 mg/dL (0.2-1.3); Blood Urea Nitrogen 15 mg/dL (7-17); Calcium 8.6 mg/dL (8.4-10.2); Carbon Dioxide 24 mmol/L (22-30); Chloride 98 mmol/L (98-107); Estimated CRCL calculation 40 ml/min; Estimated Glomerular Filt Rate 59; Glucose 76 mg/dL (65-110); Potassium 3.8 mmol/L (3.4-5.0); Sodium 129 mmol/L (137-145)
[2024-03-01] MEDS: LEVOTHYROXINE SODIUM 88 MCG TABLET PO (06:50)
[2024-03-01] MEDS: LACTATED RINGERS 1,000 ML 75 ML IV CONT (06:50)
[2024-03-01 08:00] VITALS: PULSE 59
[2024-03-01] MEDS: amLODIPine BESYLATE 5 MG TABLET PO (09:16)
[2024-03-01] MEDS: hydroCHLOROthiazide 25 MG TABLET PO (09:16)
[2024-03-01] MEDS: SULFAMETHOXAZOLE/TRIMETHOPRIM 800/160 MG DS TABLET 1 TAB PO (09:16)
[2024-03-01] MEDS: PANTOPRAZOLE 40 MG TABLET PO (09:17)
[2024-03-01] MEDS: FLUTICASONE PROPIONATE 0.05% NA SPR 16 GM BTL (*BKC) 1 SPRAY NASAL (09:17)
[2024-03-01] MEDS: LOSARTAN POTASSIUM 100 MG TABLET PO (09:17)
[2024-03-01] MEDS: CHOLECALCIFEROL 1,000 UNITS TABLET 1000 UNITS PO (09:17)
--- NOTE | 2024-03-01 09:21 | P.PNIM_ITS ---
Progress Note: A&P Assessment and Plan (1) UTI (urinary tract infection): Qualifiers: Hematuria presence: without hematuria Urinary tract infection type: acute cystitis Qualified Code(s): N30.00 - Acute cystitis without hematuria Code(s): N39.0 - Urinary tract infection, site not specified Status: Acute Assessment and Plan: 02/27/24: * UA showing 1+ urine blood, positive nitrate, 3+ leukocytes, greater than 100 urine wbc's, 4+ urine bacteria. * Urine and blood cultures were obtained and are pending * Continue Rocephin * Initial white blood count 9.0 02/28/24: * Urine culture is showing gram negative bacilli on preliminary * Blood culture showing no growth to date on preliminary read * Continue Rocephin 02/29/24: * Rocephin changed to Bactrim * UC showing citrobacter freundii 03/01/24: * No change to current treatment plan (2) Generalized weakness: Code(s): R53.1 - Weakness Status: Acute Assessment and Plan: 02/27/24: * Likely secondary to UTI versus iron deficiency anemia * Patient noticed worsening weakness over the last 3 weeks without any fall history * PT and OT ordered * Continue fall precautions * Echo ordered 02/28/24: * Echo showed normal LV systolic function with an estimated EF of 55-60%, grade 1 diastolic dysfunction, left atrial chamber moderately enlarged. * Continue PT and OT * Continue fall precautions 02/29/24: * No change to current treatment plan * Case management working on rehab placement (3) Chronic hyponatremia: Code(s): E87.1 - Hypo-osmolality and hyponatremia Status: Acute Assessment and Plan: 02/27/24: * Sodium 132 * Hyponatremia appears to be chronic * Continue to trend 02/28/24: * Sodium 130 * Continue to trend 02/29/24: * Na+ 128 * Continue to trend 03/01/24: * Na+ 129 * Continue to trend (4) Hypothyroidism: Qualifiers: Hypothyroidism type: unspecified Qualified Code(s): E03.9 - Hypothyroidism, unspecified Code(s): E03.9 - Hypothyroidism, unspecified Status: Acute Assessment and Plan: 02/27/24: * TSH WNL * Continue Synthroid 02/28/24: * No change to current treatment plan (5) Chronic iron deficiency anemia: Code(s): D50.9 - Iron deficiency anemia, unspecified Status: Acute Assessment and Plan: 02/27/24: * Recently diagnosed with iron deficiency anemia, likely losses secondary from use of Xarelto * Hemoglobin 7.7 this morning * She is scheduled to start iron infusions this Tuesday plans for outpatient colonoscopy EGD after her iron infusions * Stool was Hemoccult negative 02/28/24: * Hgb 8.7 * continue to monitor 02/29/24: * hgb 7.4 * Iron infusion today 03/01/24: * Hgb 7.8 * Continue to trend (6) Paroxysmal atrial fibrillation: Onset Date: 02/2020 Code(s): I48.0 - Paroxysmal atrial fibrillation Status: Acute Assessment and Plan: 02/27/24: * Continue metoprolol and Xarelto 02/28/24: * No change to current treatment plan Time Spent With Patient Time with patient: 25 - 35 minutes Subjective Date/time seen: 03/01/24 09:21 Interval history: Interval history: This is an 84-year-old female presented to the hospital on 02/27/2024 with complaints of weakness and shortness of breath. Workup in the hospital included a chest x-ray which was negative. 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 I
--- NOTE | 2024-03-01 09:21 | PM.IMPN ---
Progress Note: A&P Assessment and Plan (1) UTI (urinary tract infection): Qualifiers: Hematuria presence: without hematuria Urinary tract infection type: acute cystitis Qualified Code(s): N30.00 - Acute cystitis without hematuria Code(s): N39.0 - Urinary tract infection, site not specified Status: Acute Assessment and Plan: 02/27/24: UA showing 1+ urine blood, positive nitrate, 3+ leukocytes, greater than 100 urine wbc's, 4+ urine bacteria. Urine and blood cultures were obtained and are pending Continue Rocephin Initial white blood count 9.0 02/28/24: Urine culture is showing gram negative bacilli on preliminary Blood culture showing no growth to date on preliminary read Continue Rocephin 02/29/24: Rocephin changed to Bactrim UC showing citrobacter freundii 03/01/24: No change to current treatment plan (2) Generalized weakness: Code(s): R53.1 - Weakness Status: Acute Assessment and Plan: 02/27/24: Likely secondary to UTI versus iron deficiency anemia Patient noticed worsening weakness over the last 3 weeks without any fall history PT and OT ordered Continue fall precautions Echo ordered 02/28/24: Echo showed normal LV systolic function with an estimated EF of 55-60%, grade 1 diastolic dysfunction, left atrial chamber moderately enlarged. Continue PT and OT Continue fall precautions 02/29/24: No change to current treatment plan Case management working on rehab placement (3) Chronic hyponatremia: Code(s): E87.1 - Hypo-osmolality and hyponatremia Status: Acute Assessment and Plan: 02/27/24: Sodium 132 Hyponatremia appears to be chronic Continue to trend 02/28/24: Sodium 130 Continue to trend 02/29/24: Na+ 128 Continue to trend 03/01/24: Na+ 129 Continue to trend (4) Hypothyroidism: Qualifiers: Hypothyroidism type: unspecified Qualified Code(s): E03.9 - Hypothyroidism, unspecified Code(s): E03.9 - Hypothyroidism, unspecified Status: Acute Assessment and Plan: 02/27/24: TSH WNL Continue Synthroid 02/28/24: No change to current treatment plan (5) Chronic iron deficiency anemia: Code(s): D50.9 - Iron deficiency anemia, unspecified Status: Acute Assessment and Plan: 02/27/24: Recently diagnosed with iron deficiency anemia, likely losses secondary from use of Xarelto Hemoglobin 7.7 this morning She is scheduled to start iron infusions this Tuesday plans for outpatient colonoscopy EGD after her iron infusions Stool was Hemoccult negative 02/28/24: Hgb 8.7 continue to monitor 02/29/24: hgb 7.4 Iron infusion today 03/01/24: Hgb 7.8 Continue to trend (6) Paroxysmal atrial fibrillation: Onset Date: 02/2020 Code(s): I48.0 - Paroxysmal atrial fibrillation Status: Acute Assessment and Plan: 02/27/24: Continue metoprolol and Xarelto 02/28/24: No change to current treatment plan Time Spent With Patient Time with patient: 25 - 35 minutes Subjective Date/time seen: 03/01/24 09:21 Interval history: Interval history: This is an 84-year-old female presented to the hospital on 02/27/2024 with complaints of weakness and shortness of breath. Workup in the hospital included a chest x-ray which was negative. 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 Initial labs showed a normal white blood cell count of 9.0, hemoglobin 8.4, sodium 132, potassium 3.3, EGFR 53, proBNP 984, TSH 1.42. UA was obtained and showed 1+ urine blood, positive nitrate, 3+ leukocyte, greater than 100 urine WBC, 4+ bacteria. Respiratory panel was obtained and was negative for influenza a and B, RSV, COVID. Blood and urine cultures were obtained and are pending. EKG showing sinus rhythm with PACs with a rate of 99, QTC 440. Patient was given 1 L of normal saline, 40 mEq of potassium, and Rocephin while in the ED. Subjective: 03/01/24:
[2024-03-01 09:33] VITALS: O2SAT 98
[2024-03-01 12:00] VITALS: PULSE 75
--- NOTE | 2024-03-01 12:05 | PM.DS ---
DS: Admitting Diagnosis Discharge Date 03/01/24 Admitting Diagnosis generalized weakness UTI Chronic hyponatremia acute hypokalemia hypothyroidism chronic iron deficiency anemia chronic anticoagulation elevated INR DS: Discharge Diagnosis Discharge Diagnosis (1) UTI (urinary tract infection): Qualifiers: Hematuria presence: without hematuria Urinary tract infection type: acute cystitis Qualified Code(s): N30.00 - Acute cystitis without hematuria Code(s): N39.0 - Urinary tract infection, site not specified Status: Acute (2) Generalized weakness: Code(s): R53.1 - Weakness Status: Acute (3) Chronic hyponatremia: Code(s): E87.1 - Hypo-osmolality and hyponatremia Status: Acute (4) Hypothyroidism: Qualifiers: Hypothyroidism type: unspecified Qualified Code(s): E03.9 - Hypothyroidism, unspecified Code(s): E03.9 - Hypothyroidism, unspecified Status: Acute (5) Chronic iron deficiency anemia: Code(s): D50.9 - Iron deficiency anemia, unspecified Status: Acute (6) Paroxysmal atrial fibrillation: Onset Date: 02/2020 Code(s): I48.0 - Paroxysmal atrial fibrillation Status: Acute DS: Summary Hospital Course Reason for hospitalization: generalized weakness UTI Chronic hyponatremia acute hypokalemia hypothyroidism chronic iron deficiency anemia chronic anticoagulation elevated INR Hospital Course: This is an 84-year-old female presented to the hospital on 02/27/2024 with complaints of weakness and shortness of breath. Workup in the hospital included a chest x-ray which was negative. 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 Initial labs showed a normal white blood cell count of 9.0, hemoglobin 8.4, sodium 132, potassium 3.3, EGFR 53, proBNP 984, TSH 1.42. UA was obtained and showed 1+ urine blood, positive nitrate, 3+ leukocyte, greater than 100 urine WBC, 4+ bacteria. Respiratory panel was obtained and was negative for influenza a and B, RSV, COVID. Blood and urine cultures were obtained and are pending. EKG showing sinus rhythm with PACs with a rate of 99, QTC 440. Patient was given 1 L of normal saline, 40 mEq of potassium, and Rocephin while in the ED. Patient was given a dose of IV Iron yesterday. She worked with therapy and they recommend home health. Patient is stable for discharge at this time. She will need to follow up with her PCP in 1 week and Hematology for her anemia and continued iron infusions. Final diagnosis: UTI, hyponatremia, hypokalemia, iron deficiency anemia Status at Discharge Cognitive/behavioral status at discharge: Alert and oriented x3 Functional status at discharge: independent ambulation Overall status at discharge: patient is progressing back to baseline Time Spent with Patient Time attestation: Total time spent providing and/or coordinating discharge services: Time spent: Greater than 30 minutes Exam Narrative: General: In no acute distress, well nourished Cardiac: Normal S1 and S2. No murmur, gallops or friction rubs, peripheral pulses intact. Respiratory: Lungs clear to auscultation, no adventitious lung sounds, currently on room air Gastrointestinal: soft, non-distended, non-tender, normoactive bowel sounds. : voiding without difficulty. Neuro: Alert and oriented x4 Const: Other: No acute distress, well-developed well-nourished DS: Data Data Completed and Pending Completed studies during hospitalization: Chest x-ray Head Ct Pending studies at discharge: Blood cultures Labs on day of discharge: Labs from last 24 hours 03/01/24 03/01/24 05:27 05:26 WBC 7.3 RBC 3.03 L Hgb 7.8 L Hct 24.2 L MCV 79.9 L MCH 25.7 L MCHC 32.2 RDW 16.2 H Plt Count 492 H MPV 9.0 Immature Gran % (Auto) 0.4 Neut % (Auto) 65.9 Lymph % (Auto) 16.9 L [place] % (Auto) 11.4 H Eos % (Auto) 4.7 H Baso % (Auto) 0.7 Lymph # (Auto)
== END 2024-03-01 15:10 | disposition home health service (06) | DRG 690 ==
LOC: ANHED 02-27 02:36 → ANH2MED 02-27 03:01
PROVIDERS: Admitting Provider Internal Medicine; Emergency Provider Emergency Medicine; Visit Provider Nurse Practitioner Acute Care
DX: N30.00 Acute cystitis without hematuria (principal); E87.1 Hypo-osmolality and hyponatremia; B96.89 Other specified bacterial agents as the cause of diseases classified elsewhere; D50.9 Iron deficiency anemia, unspecified; E87.6 Hypokalemia; E86.0 Dehydration; I11.9 Hypertensive heart disease without heart failure; I48.0 Paroxysmal atrial fibrillation; K21.9 Gastro-esophageal reflux disease without esophagitis; R79.1 Abnormal coagulation profile; Z66 Do not resuscitate; Z79.01 Long term (current) use of anticoagulants; Z86.73 Personal history of transient ischemic attack (TIA), and cerebral infarction without residual deficits; Z20.822 Contact with and (suspected) exposure to COVID-19; Z86.16 Personal history of COVID-19; Z98.41 Cataract extraction status, right eye; Z98.42 Cataract extraction status, left eye; Z96.1 Presence of intraocular lens
CPT/HCPCS: 36415; 70450; 71045; 80048; 80053; 81001; 83605; 83690; 83735; 83880; 84100; 84443; 84484; 85025; 85027; 85610; 85730; 86850; 86900; 86901; 87040; 87086; 87088; 87186; 87637; 93005; 93306; 96365; 97116; 97161; 97165; 99285; A9270; J0360; J0696; J1756; J7030; J7050; J7120

== ENCOUNTER 2024-03-11 18:07 | Inpatient (IN) | payer MEDICARE, OTHER, SELFPAY ==
[2024-03-11] VITALS (14 sets, daily range): BP systolic 117–150; BP diastolic 46–71; PULSE 72–98; RESP 13–22; TEMP 36.6; O2SAT 97–100
--- NOTE | 2024-03-11 18:19 | ECG_ITS ---
Test Date: 2024-03-11 18:24:32 Measurements Intervals [place] Rate: 73 P: 12 [place]: 172 QRS: -5 QRSD: 106 T: 62 QT: 388 QTc: 428 Interpretive Statements SINUS RHYTHM WITH OCCASIONAL VENTRICULAR PREMATURE COMPLEXES CONSIDER INFERIOR INFARCT, AGE INDETERMINATE NONSPECIFIC ST & T-WAVE ABNORMALITY- HIGH LATERAL LEADS BASELINE ARTIFACT- I, II, III, AVR, AVF ABNORMAL ECG Compared to ECG 02/27/2024 02:29:13 VENTRICULAR BIGEMINY NO LONGER PRESENT Electronically Signed On 03-11-2024 20:11:44 CDT by Roland Melgar D.O.
[2024-03-11 18:32] LABS: Basophils Absolute Auto 0.1 K/mm3 (0.0-0.1); Basophils Percent Auto 0.6 % (0.2-1.2); Eosinophils Absolute Auto 0.2 K/mm3 (0-0.3); Eosinophils Percent Auto 2.9 % (0-4.4); Hematocrit 26.3 % (37.0-47.0); Hemoglobin 8.5 g/dL (12.0-15.0); Immature Granulocyte Absolute 0.03 K/mm3 (0.00-0.031); Immature Granulocyte Percent A 0.4 % (0-0.5); Lymphocytes Absolute Auto 1.36 K/mm3 (0.9-3.2); Mean Corpuscular HGB Conc 32.3 g/dl (32-36); Mean Corpuscular Hemoglobin 26.3 pg (26-34); Mean Corpuscular Volume 81.4 fl (80-100); Mean Platelet Volume 8.9 fl (7.4-10.4); Monocytes Absolute Auto 1.1 K/mm3 (0.1-0.6); Monocytes Percent Auto 13.2 % (2.6-8.5); Neutrophils Absolute Auto 5.3 K/mm3 (1.3-6.7); Neutrophils Percent Auto 65.9 % (45.5-73.1); Platelet Count Result 490 k/mm3 (150-375); Red Blood Count 3.23 M/mm3 (4.2-5.4); Red Cell Distribution Width 18.4 % (11.5-14.5)
[2024-03-11 18:42] LABS: Alanine Aminotransferase 22 U/L (6-35); Albumin Level 3.8 g/dL (3.5-5.1); Alkaline Phosphatase 73 U/L (38-126); Anion Gap 9 mmol/L (4-12); Aspartate Amino Transferase 27 U/L (14-36); Bilirubin,Total 0.2 mg/dL (0.2-1.3); Blood Urea Nitrogen 22 mg/dL (7-17); Calcium 8.4 mg/dL (8.4-10.2); Carbon Dioxide 21 mmol/L (22-30); Chloride 96 mmol/L (98-107); Estimated CRCL calculation 33 ml/min; Estimated Glomerular Filt Rate 47; Glucose 109 mg/dL (65-110); Lipase 45 U/L (23-300); Potassium 4.1 mmol/L (3.4-5.0); Sodium 126 mmol/L (137-145)
[2024-03-11 18:44] LABS: Prothrombin Time 14.1 Seconds (11.1-14.7)
[2024-03-11 18:45] LABS: Partial Thromboplastin Time 41.2 Seconds (22.3-36.8)
[2024-03-11 20:05] LABS: Magnesium 1.7 mg/dL (1.6-2.3); Phosphorus 3.2 mg/dL (2.5-4.5)
[2024-03-11] MEDS: SODIUM CHLORIDE 0.9% IV 1,000 ML 999 ML IV CONT (20:15)
[2024-03-11 20:16] LABS: Troponin I < 0.012 ng/mL (0.000-0.034)
[2024-03-11 21:12] LABS: Bacteria Urine 4+ /hpf; Non Pathogenic Casts 0-2; Squamous Epithelial Cell Urine None Seen /hpf (Few); WBC Urine >100 /hpf (0-3)
[2024-03-11 21:14] LABS: Appearance Urine Sl Cloudy (Clear); Color Urine Yellow (Yellow)
[2024-03-11 21:15] LABS: Blood Urine 1+ (Negative); Glucose Urine UA Negative (Negative); Ketones Urine Negative (Negative); Nitrate Urine Negative (Negative); Protein Urine 1+ mg/dL (Negative); Specific Grav Ur 1.015 (1.001-1.035); pH Urine 5.5 (5.0-9.0)
[2024-03-11 21:16] LABS: Add Urine Microscopic? YES; Bilirubin Urine Negative (Negative); Leukocyte Esterase Ur 3+ LEU/UL (Negative); Urobilinogen Urine 0.2 mg/dL (<2.0)
--- NOTE | 2024-03-11 21:57 | ED.GENADULT ---
HPI - General Adult General Chief complaint: Recheck/Abnormal Lab/Rx Stated complaint: low heart rate Time Seen by Provider: 03/11/24 18:54 History of Present Illness HPI narrative: This is an 84-year-old female presenting ED with chief complaint of a low heart rate. the patient's family noticed that after she took her metoprolol her heart rate dropped down into the 30s. It then worked its way back up to the 80s then would intermittently drop throughout the day. Patient noticed with this happens she becomes fatigued dizzy lightheaded. Patient denies fevers chills chest pain difficulty breathing or abdominal pain. She was recently treated in our hospital for urinary tract infection and is still having intermittent urgency and dysuria. patient has chronic fatigue and has not felt like herself since 2020 when she caught COVID. Related Data Home Medications Medication Instructions Recorded Confirmed calcium carb 300 mg-D3 20 mcg-mag 1 tablet PO DAILY 02/11/20 02/27/24 ox 25 mg-spectroscopist 0.5 [id number] tablet (Caltrate-D3 Plus Minerals) cholecalciferol (vitamin D3) 25 25 mcg PO DAILY 02/11/20 02/27/24 mcg (1,000 unit) capsule fexofenadine 180 mg tablet 180 mg PO HS 02/11/20 02/27/24 ([facility]) fluticasone propionate 50 1 spray intranasal DAILY 02/11/20 02/27/24 mcg/actuation nasal spray,suspension omeprazole 20 mg capsule,delayed 20 mg PO DAILY 02/11/20 02/27/24 release Tumeric 500 mg PO DAILY 05/26/20 02/27/24 black cohosh 540 mg capsule 540 mg PO DAILY 02/27/24 02/27/24 levothyroxine 88 mcg tablet 88 mcg PO DAILY 02/27/24 02/27/24 losartan 100 1 tablet PO DAILY 02/27/24 02/27/24 mg-hydrochlorothiazide 25 mg tablet metoprolol succinate 25 mg 12.5 mg PO HS 02/27/24 02/27/24 tablet,extended release 24 hr (Toprol XL) Allergies Allergy/AdvReac Type Severity Reaction Status Date / Time latex AdvReac Intermediate Rash Verified 03/11/24 18:16 [facility] Past Medical History Medical History Chronic anticoagulation Chronic hyponatremia Chronic iron deficiency anemia Degenerative disc disease Diastolic dysfunction Echo February 2020: EF 60 65% grade 1 diastolic dysfunction, mild left atrial enlargement mild increased left ventricular wall thickness Gastroesophageal reflux Hypertension Hypothyroidism Paroxysmal atrial fibrillation (02/2020) Onset occurred with active COVID infection Surgical History Surgical History History of varicose vein stripping Status post cataract extraction of both eyes with insertion of intraocular lens Status post debridement Of right lower extremity ulcer x5. Family History Family History Sibling Heart problem Brother Hypertension Heart attack Cancer Sibling Hypertension High cholesterol Sister Diabetes mellitus Cancer Pulmonary disease Mother Cancer Father Cancer Social History Social History Social History: She is independent in all activities of daily living. She and her both still drive. Surrogate decision maker: Erich Castaneda, . Code status: DNR/DNI per patient request (patient reports she has a living will) Smoking status: Never smoker Alcohol intake: never Substance use: never Substance use type: does not use Do You Feel Safe in your Home?: Yes Lack of Transportation: No Lack of Food: Never True Current Housing: I Have Housing Concerned About Future Housing: No Difficulty Paying Gas/Electric Bills: No Difficulty Paying for Meds: No Currently Unemployed: No Education: High School Diploma/GED Difficulty w/ Childcare or Family Care: No Additional living arrangements comments: Resides in [place], [place] with her . They have been since 8.
--- NOTE | 2024-03-11 22:01 | ECG_ITS ---
Test Date: 2024-03-11 22:10:41 Measurements Intervals [place] Rate: 99 P: 40 [place]: 164 QRS: -4 QRSD: 96 T: 70 QT: 334 QTc: 429 Interpretive Statements SINUS RHYTHM WITH FREQUENT SUPRAVENTRICULAR PREMATURE COMPLEXES IN A BIGEMINAL PATTERN LEFT VENTRICULAR HYPERTROPHY WITH ST-T CHANGE NONSPECIFIC ST & T-WAVE ABNORMALITY- LATERAL LEADS ABNORMAL ECG Compared to ECG 03/11/2024 18:24:32 SUPRAVENTRICULAR BIGEMINY NOW PRESENT Electronically Signed On 03-12-2024 07:37:00 CDT by Roland Melgar D.O.
[2024-03-11] MEDS: LACTATED RINGERS 1,000 ML 75 ML IV CONT (23:19)
[2024-03-11 23:31] LABS: Troponin I < 0.012 ng/mL (0.000-0.034)
[2024-03-12] VITALS (20 sets, daily range): BP systolic 116–151; BP diastolic 47–68; PULSE 60–168; RESP 16–22; TEMP 36.2–36.7; O2SAT 97–100; BMI 27.5
--- NOTE | 2024-03-12 02:38 | PM.IMHP ---
H&P: HPI History of Present Illness Date/Time: 03/11/24 23:50 Chief Complaint: Low heart rate and blood pressure Narrative: 84-year-old female with a past medical history grade 1 diastolic dysfunction, paroxysmal atrial fibrillation, essential hypertension, hypothyroidism, iron deficiency anemia and recent UTI who presented to the ER with bradycardia and low blood pressure. During that last hospitalization she had been mentioning palpitations that would coincide with intermittent episodes of dyspnea on exertion and at times lightheadedness and dizziness. She was monitor on telemetry and did not have any gross arrhythmia. However patient was having episodes of fatigue, dizziness and lightheadedness. Her family at the time checked her pulse and it was noted that the patient's pulse was down in the 30s. They monitor blood pressure and pulse and her pulse did come back up into the 80s. But her pulse did intermittently dropped throughout the day in each time she would have a recurrence of her symptoms. Her initial EKG in the ER demonstrated sinus rhythm at 85. However while the ER provider was in the room with the patient she have a and atrial bigeminy pattern at which time only 1 of the patient's bigeminal beats was actually conducting. The patient's heart rate was waiting 80 on the telemetry but her actual pulse was 40. They were able to capture this rhythm on an EKG. During her last hospitalization she was noted to be hypertensive. Norvasc was added to her antihypertensive regimen. She was also continued on her home metoprolol XL 12.5 mg p.o. daily. Both she and her family members at bedside reports that she has been on metoprolol for several years. Her metoprolol dose was not changed during her recent hospitalization. The patient had been admitted to the hospital on the due to weakness and shortness of breath. She had a urine culture that grew out Citrobacter freundii she was discharged on Bactrim. She reported that her urinary urgency and frequency improved initially after treatment with the antibiotics but then over the last for 5 days she has had return of her urinary urgency and intermittent dysuria. Patient does have history of chronic hyponatremia her sodium is slightly lower than her baseline. Her appetite has been slightly less than usual. Patient was recently initiated IV iron infusions as outpatient. Hemoglobin has improved slightly compared to prior hospitalization. The patient's case was discussed with her family members at bedside with the patient's permission. Review of Systems Review of Systems: 12 systems were reviewed with pertinent positives and negatives per HPI. Except as documented in the HPI, all other systems were reviewed and are negative. [facility] Past Medical History Medical History Chronic anticoagulation Chronic hyponatremia Chronic iron deficiency anemia Degenerative disc disease Diastolic dysfunction Echo February 2020: EF 60 65% grade 1 diastolic dysfunction, mild left atrial enlargement mild increased left ventricular wall thickness Gastroesophageal reflux Hypertension Hypothyroidism Paroxysmal atrial fibrillation (02/2020) Onset occurred with active COVID infection Surgical History Surgical History History of varicose vein stripping Status post cataract extraction of both eyes with insertion of intraocular lens Status post debridement Of right lower extremity ulcer x5. Family History Family History Sibling Heart problem Brother Hypertension Heart attack Cancer Sibling Hypertension High cholesterol Sister Diabetes mellitus Cancer Pulmonary disease Mother Cancer Father Cancer Social History Social History (Updated 03/12/24 @ 03:00 by Jennie Hodges DO) Social History: She is independent i
[2024-03-12 05:10] LABS: Anion Gap 9 mmol/L (4-12); Blood Urea Nitrogen 19 mg/dL (7-17); Calcium 8.5 mg/dL (8.4-10.2); Carbon Dioxide 20 mmol/L (22-30); Chloride 100 mmol/L (98-107); Estimated CRCL calculation 40 ml/min; Estimated Glomerular Filt Rate 59; Glucose 89 mg/dL (65-110); Potassium 3.8 mmol/L (3.4-5.0); Sodium 129 mmol/L (137-145)
[2024-03-12] MEDS: LEVOTHYROXINE SODIUM 88 MCG TABLET PO (06:07)
--- NOTE | 2024-03-12 06:42 | PM.IMPN ---
Progress Note: A&P Assessment and Plan (1) Bradycardia: Code(s): R00.1 - Bradycardia, unspecified Status: Acute Assessment and Plan: - Patient had rhythm with bigeminal pattern were at 2nd beat of bigeminal rhythm was non conducting - hold the patient's home beta-lianna - Cardiology has been consulted - on telemetry. recommendations reviewed: Continue losartan DC hydrochlorothiazide DC metoprolol If the patient continued to be symptomatic from atrial bigeminy will consider attempt was diltiazem and if it fails , we can consider antiarrhythmic therapy . (2) Acute UTI: Code(s): N39.0 - Urinary tract infection, site not specified Status: Acute Assessment and Plan: -priior culture was sensitive to Rocephin. Patient has been placed on empiric antibiotic therapy with Rocephin. -Blood cultures and urine cultures pending. (3) Chronic hyponatremia: Code(s): E87.1 - Hypo-osmolality and hyponatremia Status: Acute Assessment and Plan: Acute on chronic (4) Chronic iron deficiency anemia: Code(s): D50.9 - Iron deficiency anemia, unspecified Status: Acute Assessment and Plan: recent outpt iron infusion Plan # essential hypertension. Blood pressures are stable. Will continue patient's home losartan but will hold patient's hydrochlorothiazide is this could be playing a component in the patient's hyponatremia. Patient's hyponatremia is slightly worse than usual possibly due to decreased oral intake associated with recent UTI and illness. Patient has been placed on gentle IV fluid hydration with lactated Ringer's. Will check repeat BMP in a.m.. Patient recently started on outpatient iron infusions. Patient's hemoglobin has increased modestly. No evidence of active bleeding. Will continue home Xarelto. Time Spent With Patient Time with patient: Greater than 35 minutes Subjective Date/time seen: 03/12/24 06:42 Interval history: Low heart rate and blood pressure Narrative retrieved from H/P: 84-year-old female with a past medical history grade 1 diastolic dysfunction, paroxysmal atrial fibrillation, essential hypertension, hypothyroidism, iron deficiency anemia and recent UTI who presented to the ER with bradycardia and low blood pressure. During that last hospitalization she had been mentioning palpitations that would coincide with intermittent episodes of dyspnea on exertion and at times lightheadedness and dizziness. She was monitor on telemetry and did not have any gross arrhythmia. However patient was having episodes of fatigue, dizziness and lightheadedness. Her family at the time checked her pulse and it was noted that the patient's pulse was down in the 30s. They monitor blood pressure and pulse and her pulse did come back up into the 80s. But her pulse did intermittently dropped throughout the day in each time she would have a recurrence of her symptoms. Her initial EKG in the ER demonstrated sinus rhythm at 85. However while the ER provider was in the room with the patient she have a and atrial bigeminy pattern at which time only 1 of the patient's bigeminal beats was actually conducting. The patient's heart rate was waiting 80 on the telemetry but her actual pulse was 40. They were able to capture this rhythm on an EKG. During her last hospitalization she was noted to be hypertensive. Norvasc was added to her antihypertensive regimen. She was also continued on her home metoprolol XL 12.5 mg p.o. daily. Both she and her family members at bedside reports that she has been on metoprolol for several years. Her metoprolol dose was not changed during her recent hospitalization. The patient had been admitted to the hospital on the due to weakness and shortness of breath. She had a urine culture that grew out Citrobacter freundii she was discharged on Bactrim. She reported that her urinary urgency and frequency improved initially after treatment w
--- NOTE | 2024-03-12 08:43 | PM.CNCAR ---
Assessment and Plan Assessment and plan (1) Bradycardia: Code(s): R00.1 - Bradycardia, unspecified Status: Acute Plan Atrial bigeminy with BC is a does not conduct to peripheral circulation and does not count on pulse oximetry. Hypertension controlled History paroxysmal atrial fibrillation on oral anticoagulation History of anemia iron deficiency Hypothyroidism UTI Plan Continue losartan DC hydrochlorothiazide DC metoprolol If the patient continued to be symptomatic from atrial bigeminy will consider attempt was diltiazem and if it fails , we can consider antiarrhythmic therapy History of Present Illness History of Present Illness Consult date/time: 03/12/24 08:43 Reason For Visit: UTI, Bradycardia Narrative: 84-year-old female patient presents to the hospital with shortness of breath present at mild to moderate activity associated with nausea. Family members checked her heart rate and found to be in the 30s. Her blood pressure has been stable. There is history of proximal atrial fibrillation. On arrival to the ED she was noted to have atrial bigeminy. It seems that she had multiple nonconducted beats. Patient had recent admission was urine tract infection. Review of Systems Review of Systems: All systems reviewed & are unremarkable except as noted in HPI and below PMFSH Past Medical History Medical History Chronic anticoagulation Chronic hyponatremia Chronic iron deficiency anemia Degenerative disc disease Diastolic dysfunction Echo February 2020: EF 60 65% grade 1 diastolic dysfunction, mild left atrial enlargement mild increased left ventricular wall thickness Gastroesophageal reflux Hypertension Hypothyroidism Paroxysmal atrial fibrillation (02/2020) Onset occurred with active COVID infection Surgical History Surgical History History of varicose vein stripping Status post cataract extraction of both eyes with insertion of intraocular lens Status post debridement Of right lower extremity ulcer x5. Family History Family History Sibling Heart problem Brother Hypertension Heart attack Cancer Sibling Hypertension High cholesterol Sister Diabetes mellitus Cancer Pulmonary disease Mother Cancer Father Cancer Social History Social History (Updated 03/12/24 @ 03:00 by Jennie Hodges DO) Social History: She is independent in all activities of daily living. She and her both still drive. Surrogate decision maker: Erich Castaneda, . Code status: DNR/DNI per patient request (patient reports she has a living will) Smoking status: Never smoker Alcohol intake: never Substance use: never Substance use type: does not use Do You Feel Safe in your Home?: Yes Lack of Transportation: No Lack of Food: Never True Current Housing: I Have Housing Concerned About Future Housing: No Difficulty Paying Gas/Electric Bills: No Difficulty Paying for Meds: No Currently Unemployed: No Education: High School Diploma/GED Difficulty w/ Childcare or Family Care: No Additional living arrangements comments: Resides in [place], [place] with her . They have been since 1957. They have 3 grown children. 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 Gender identity (if verbalized by the patient): Female Sexual Orientation (if Verbalized by the Patient): Straight or Heterosexual Spiritual care concerns: No Meds Home Medications and Allergies Home Medications Medication Instructions Recorded Confirmed Type calcium carb 300 mg-D3 20 mcg-mag 1 tablet PO DAILY 02/11/20 03/12/24 History ox 25 mg-mass spectroscopist 0.5 [id number] tablet (Caltrate-D3 Plus Minerals) chol
[2024-03-12] MEDS: CHOLECALCIFEROL 1,000 UNITS TABLET 1000 UNITS PO (08:48)
[2024-03-12] MEDS: CALCIUM/VITAMIN D 250 MG/3.125 MCG (125 I.U.) TABLET 1 TABLET PO (08:48)
[2024-03-12] MEDS: amLODIPine BESYLATE 5 MG TABLET PO (08:48)
[2024-03-12] MEDS: PANTOPRAZOLE 40 MG TABLET PO (08:48)
[2024-03-12] MEDS: LOSARTAN POTASSIUM 100 MG TABLET PO (08:48)
[2024-03-12] MEDS: LACTATED RINGERS 1,000 ML 75 ML IV CONT (13:28)
--- NOTE | 2024-03-12 21:10 | PC.NURSE ---
Received to room 206 bed 2 from 242 with all belongings. Report from [facility]. Assessment per flowsheet
[2024-03-12] MEDS: AMIODARONE 360 MG/D5W 200 ML 360 MG/200 ML BAG 33.33 MG IV CONT (21:55)
[2024-03-12] MEDS: AMIODARONE 150 MG/D5W 100 ML 150 MG/100 ML BAG 600 MG IV CONT (22:16)
[2024-03-12] MEDS: LORATADINE 10 MG TABLET PO (22:23)
[2024-03-13] VITALS (18 sets, daily range): BP systolic 130–156; BP diastolic 51–70; PULSE 62–102; RESP 12–16; TEMP 36.3–36.6; O2SAT 96–100; BMI 28.1
[2024-03-13] MEDS: LACTATED RINGERS 1,000 ML 75 ML IV CONT (04:10)
[2024-03-13] MEDS: AMIODARONE 360 MG/D5W 200 ML 360 MG/200 ML BAG 16.67 MG IV CONT (04:12)
[2024-03-13] MEDS: LEVOTHYROXINE SODIUM 88 MCG TABLET PO (06:11)
--- NOTE | 2024-03-13 08:10 | PM.IMPN ---
Progress Note: A&P Assessment and Plan (1) Bradycardia: Code(s): R00.1 - Bradycardia, unspecified Status: Acute Assessment and Plan: - Patient had rhythm with bigeminal pattern were at 2nd beat of bigeminal rhythm was non conducting - hold the patient's home beta-lianna - Cardiology has been consulted - on telemetry. recommendations reviewed: Continue losartan DC hydrochlorothiazide DC metoprolol If the patient continued to be symptomatic from atrial bigeminy will consider attempt was diltiazem and if it fails , we can consider antiarrhythmic therapy . (2) Acute UTI: Code(s): N39.0 - Urinary tract infection, site not specified Status: Acute Assessment and Plan: -priior culture was sensitive to Rocephin. Patient has been placed on empiric antibiotic therapy with Rocephin. -Blood cultures and urine cultures pending. 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 Blood pressures are stable. Will continue patient's home losartan but will hold patient's hydrochlorothiazide is this could be playing a component in the patient's hyponatremia. Patient's hyponatremia is slightly worse than usual possibly due to decreased oral intake associated with recent UTI and illness. Patient has been placed on gentle IV fluid hydration with lactated Ringer's. Will check repeat BMP in a.m.. Patient recently started on outpatient iron infusions due to GI bleed. Patient's hemoglobin has increased modestly. No evidence of active bleeding. Will hold home Xarelto. Time Spent With Patient Time with patient: Greater than 35 minutes Subjective Date/time seen: 03/13/24 08:10 Interval history: Low heart rate and blood pressure Narrative retrieved from H/P: 84-year-old female with a past medical history grade 1 diastolic dysfunction, paroxysmal atrial fibrillation, essential hypertension, hypothyroidism, iron deficiency anemia and recent UTI who presented to the ER with bradycardia and low blood pressure. During that last hospitalization she had been mentioning palpitations that would coincide with intermittent episodes of dyspnea on exertion and at times lightheadedness and dizziness. She was monitor on telemetry and did not have any gross arrhythmia. However patient was having episodes of fatigue, dizziness and lightheadedness. Her family at the time checked her pulse and it was noted that the patient's pulse was down in the 30s. They monitor blood pressure and pulse and her pulse did come back up into the 80s. But her pulse did intermittently dropped throughout the day in each time she would have a recurrence of her symptoms. Her initial EKG in the ER demonstrated sinus rhythm at 85. However while the ER provider was in the room with the patient she have a and atrial bigeminy pattern at which time only 1 of the patient's bigeminal beats was actually conducting. The patient's heart rate was waiting 80 on the telemetry but her actual pulse was 40. They were able to capture this rhythm on an EKG. During her last hospitalization she was noted to be hypertensive. Norvasc was added to her antihypertensive regimen. She was also continued on her home metoprolol XL 12.5
--- NOTE | 2024-03-13 08:44 | ECG_ITS ---
Test Date: 2024-03-13 09:33:05 Measurements Intervals [place] Rate: 81 P: 9 VT: 166 QRS: 0 QRSD: 97 T: 56 QT: 403 QTc: 470 Interpretive Statements SINUS RHYTHM WITH OCCASIONAL SUPRAVENTRICULAR PREMATURE COMPLEXES NONSPECIFIC ST-T WAVE ABNORMALITY- LAT/HIGH LAT LEADS BASELINE ARTIFACT- II, III, AVL, AVF, V1-V2 BORDERLINE ECG Compared to ECG 03/11/2024 22:10:41 NO SIGNIFICANT CHANGE Electronically Signed On 03-13-2024 10:36:17 CDT by Roland Melgar D.O.
[2024-03-13] MEDS: PANTOPRAZOLE 40 MG TABLET PO (09:05)
[2024-03-13] MEDS: CHOLECALCIFEROL 1,000 UNITS TABLET 1000 UNITS PO (09:05)
[2024-03-13] MEDS: LOSARTAN POTASSIUM 100 MG TABLET PO (09:05)
--- NOTE | 2024-03-13 13:11 | PM.PNCARD ---
Progress Note: A&P Assessment and Plan (1) Bradycardia: Code(s): R00.1 - Bradycardia, unspecified Status: Acute Plan Atrial bigeminy with BC is a does not conduct to peripheral circulation and does not count on pulse oximetry. Hypertension controlled History paroxysmal atrial fibrillation on oral anticoagulation History of anemia iron deficiency Hypothyroidism UTI Plan Continue losartan DC hydrochlorothiazide DC metoprolol Went into AF RVR last night and was placed on amiodarone drip, back in sinus rhythm now. Will discontinue amiodarone IV and shift to amiodarone 200mg p.o. for maintenance dose. 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 Mariee next week. Stable from a cardiac standpoint, cardiology will sign off, please call with questions. Subjective Date/time seen: 03/13/24 13:11 Interval history: Cardiology follow up for atrial bigeminy, PAF Date of service 03/13/2024: Converted back to sinus rhythm this morning and maintains sinus rhythm now. She feels ok overall but is fatigued. Review of Systems Review of Systems: All systems reviewed & are unremarkable except as noted in HPI and below Exam Const: General: comfortable and no acute distress Other: Able to lie flat HENMT: Face/Nose/Sinus: Normal nares present and no epistaxis Mouth: Yes moist mucous membranes Eyes: Sclera: sclerae normal Pupils: Equal, round and reactive pupils present Neck: Neck: supple and no JVD Carotids: no bruits Resp: Auscultation: clear to auscultation bilaterally and lung sounds not diminished Other: No chest wall tenderness Cardio: Rate: regular rate Rhythm: regular rhythm Heart sounds: no gallops, no murmurs and no rubs GI: Auscultation: normal bowel sounds Skin: General skin exam: normal color, rashes and/or lesions noted and no erythema Other: Warm Neuro: Cranial nerves: Yes Equal, round and reactive pupils present Speech: normal speech Other: No obvious focal deficit or facial asymmetry Extrem: General: no edema Other: Normal capillary refills Intact distal pulses. Objective Data Vital Signs Vital Signs: Vital Signs - 24 hr 03/12/24 14:00 03/12/24 16:00 03/12/24 19:58 Temperature 36.6 C 36.7 C Pulse Rate 73 76 97 Respiratory Rate 22 H 16 Blood Pressure 117/68 134/47 L Pulse Oximetry 100 98 Oxygen Delivery 03/12/24 19:11 03/12/24 19:10 03/12/24 19:11 Temperature Pulse Rate 106 H 168 H 106 H Respiratory Rate 16 Blood Pressure 149/61 H Pulse Oximetry 98 Oxygen Delivery 03/12/24 19:25 03/12/24 20:00 03/12/24 21:55 Temperature Pulse Rate 97 97 122 H Respiratory Rate 16 Blood Pressure 144/66 H Pulse Oximetry 98 Oxygen Delivery Room Air 03/12/24 22:16 03/12/24 23:32 03/12/24 20:00 Temperature 36.5 C Pulse Rate 102 H 94 109 H Respiratory Rate 16 Blood Pressure 143/66 H 151/60 H Pulse Oximetry 97 Oxygen Delivery 03/12/24 23:55 03/13/24 00:00 03/13/24 00:00 Temperature Pulse Rate 94 67 94 Respiratory Rate 16 Blood Pressure 151/60 H Pulse Oximetry 97 Oxygen Delivery Room Air 03/13/24 01:42 03/13/24 01:53 03/13/24 01:54 Temperature Pulse Rate 102 H 84 Respiratory Rate Blood Pressure 143/66 H 156/67 H Pulse Oximetry Oxygen Delivery 03/13/24 03:58 03/13/24 04:12 03/13/24 04:00 Temperature 36.6 C Pulse Rate 76 73 73 Respiratory Rate 16 16 Blood Pressure 131/61 Pulse Oximetry 96 96 Oxygen Delivery Room Air 03/13/24 04:00 03/13/24 06:23 03/13/24 09:04 Temperature 36.4 C L Pulse Rate 79 77 Respiratory Rate 12 Blood Pressure 141/60 H 144/51 H Pulse Oximetry 99 Oxygen Delivery Intake/Output Intake/Output: Intake & Output 03/10/24 03/11/24 03/12/24 03/13/24 23:59 23:59 23:59 23:59 Intake Total 1050 2540 1289.4 Output Total 800 Balance 1050 2540 489.4 Meds/Results Medications: Ac
[2024-03-13] MEDS: CALCIUM/VITAMIN D 250 MG/3.125 MCG (125 I.U.) TABLET 1 TABLET PO (13:55)
[2024-03-13] MEDS: AMIODARONE HCL 200 MG TABLET PO (13:55)
[2024-03-13] MEDS: LORATADINE 10 MG TABLET PO (20:24)
[2024-03-13] MEDS: FLUTICASONE PROPIONATE 0.05% NA SPR 16 GM BTL (*BKC) 1 SPRAY NASAL (20:24)
[2024-03-14] VITALS (8 sets, daily range): BP systolic 130–142; BP diastolic 55–72; PULSE 76–86; RESP 16; TEMP 36.1–36.5; O2SAT 99–100
[2024-03-14] MEDS: LEVOTHYROXINE SODIUM 88 MCG TABLET PO (06:09)
[2024-03-14] MEDS: LOSARTAN POTASSIUM 100 MG TABLET PO (09:56)
[2024-03-14] MEDS: CALCIUM/VITAMIN D 250 MG/3.125 MCG (125 I.U.) TABLET 1 TABLET PO (09:56)
[2024-03-14] MEDS: PANTOPRAZOLE 40 MG TABLET PO (09:56)
[2024-03-14] MEDS: AMIODARONE HCL 200 MG TABLET PO (09:56)
[2024-03-14] MEDS: CHOLECALCIFEROL 1,000 UNITS TABLET 1000 UNITS PO (09:56)
[2024-03-14 11:59] LABS: Hematocrit 26.9 % (37.0-47.0); Hemoglobin 8.6 g/dL (12.0-15.0); Mean Corpuscular Hemoglobin 26.5 pg (26-34); Mean Platelet Volume 8.5 fl (7.4-10.4); Platelet Count Result 492 k/mm3 (150-375); Red Blood Count 3.24 M/mm3 (4.2-5.4); Red Cell Distribution Width 19.3 % (11.5-14.5); White Blood Count 9.5 K/mm3 (4.5-10.0)
[2024-03-14] MEDS: ATORVASTATIN 10 MG TABLET PO (12:29)
[2024-03-14] MEDS: ASPIRIN 81 MG ENTERIC TABLET PO (12:29)
--- NOTE | 2024-03-14 13:12 | PM.DS ---
DS: Admitting Diagnosis Discharge Date 03/14/24 Admitting Diagnosis dizziness DS: Discharge Diagnosis Discharge Diagnosis (1) Bradycardia: Code(s): R00.1 - Bradycardia, unspecified Status: Acute Assessment and Plan: - Patient had rhythm with bigeminal pattern were at 2nd beat of bigeminal rhythm was non conducting - hold the patient's home beta-lianna - Cardiology has been consulted - on telemetry. recommendations reviewed: Continue losartan DC hydrochlorothiazide DC metoprolol If the patient continued to be symptomatic from atrial bigeminy will consider attempt was diltiazem and if it fails , we can consider antiarrhythmic therapy . (2) Acute UTI: Code(s): N39.0 - Urinary tract infection, site not specified Status: Acute Assessment and Plan: -priior culture was sensitive to Rocephin. Patient has been placed on empiric antibiotic therapy with Rocephin. -Blood cultures and urine cultures pending. (3) Chronic hyponatremia: Code(s): E87.1 - Hypo-osmolality and hyponatremia Status: Acute Assessment and Plan: Acute on chronic (4) Chronic iron deficiency anemia: Code(s): D50.9 - Iron deficiency anemia, unspecified Status: Acute Assessment and Plan: recent outpt iron infusion (5) Chronic anticoagulation: Code(s): Z79.01 - long term care social worker (current) use of anticoagulants Status: Acute Assessment and Plan: -holding xarerlo for now as recent GI bleed per pt report (6) Atrial fibrillation with RVR: Code(s): I48.91 - Unspecified atrial fibrillation Status: Acute Assessment and Plan: went into afib with RVR last night- was moved to IMU, IV amiodarone - NSR this am - continue tele monitoring Plan # essential hypertension. Blood pressures are stable. Will continue patient's home losartan but will hold patient's hydrochlorothiazide is this could be playing a component in the patient's hyponatremia. Patient's hyponatremia is slightly worse than usual possibly due to decreased oral intake associated with recent UTI and illness. Patient has been placed on gentle IV fluid hydration with lactated Ringer's. Will check repeat BMP in a.m.. Patient recently started on outpatient iron infusions due to GI bleed. Patient's hemoglobin has increased modestly. No evidence of active bleeding. Will hold home Xarelto. DS: Summary Hospital Course Reason for hospitalization: bradycardia, atrial fibrillation with RVR Hospital Course: 84-year-old female with a past medical history grade 1 diastolic dysfunction, paroxysmal atrial fibrillation, essential hypertension, hypothyroidism, iron deficiency anemia and recent UTI who presented to the ER with bradycardia and low blood pressure. During that last hospitalization she had been mentioning palpitations that would coincide with intermittent episodes of dyspnea on exertion and at times lightheadedness and dizziness. She was monitor on telemetry and did not have any gross arrhythmia. However patient was having episodes of fatigue, dizziness and lightheadedness. Her family at the time checked her pulse and it was noted that the patient's pulse was down in the 30s. They monitor blood pressure and pulse and her pulse did come back up into the 80s. But her pulse did intermittently dropped throughout the day in each time she would have a recurrence of her symptoms. Her initial EKG in the ER demonstrated sinus rhythm at 85. However while the ER provider was in the room with the patient she have a and atrial bigeminy pattern at which time only 1 of the patient's bigeminal beats was actually conducting. The patient's heart rate was waiting 80 on the telemetry but her actual pulse was 40. They were able to capture this rhythm on an EKG. During her last hospitalization she was noted to be hypertensive. Norvasc was added to her antihypertensive regimen. She was also continued on her home metoprolol XL
== END 2024-03-14 14:39 | disposition home health service (06) | DRG 315 ==
LOC: ANHED 22:10 → ANH2MED 23:39 → ANHIMU 03-12 21:21
PROVIDERS: Emergency Medicine; Admitting Provider Internal Medicine; Emergency Provider Emergency Medicine; Visit Provider Nurse Practitioner Acute Care
DX: R00.8 Other abnormalities of heart beat (principal); E87.1 Hypo-osmolality and hyponatremia; N39.0 Urinary tract infection, site not specified; R00.1 Bradycardia, unspecified; I48.0 Paroxysmal atrial fibrillation; B96.20 Unspecified Escherichia coli [E. coli] as the cause of diseases classified elsewhere; E86.0 Dehydration; D50.9 Iron deficiency anemia, unspecified; K21.9 Gastro-esophageal reflux disease without esophagitis; E03.9 Hypothyroidism, unspecified; I10 Essential (primary) hypertension; Z79.01 Long term (current) use of anticoagulants; Z86.16 Personal history of COVID-19; Z96.1 Presence of intraocular lens; Z98.42 Cataract extraction status, left eye; Z98.41 Cataract extraction status, right eye
CPT/HCPCS: 36415; 80048; 80053; 81001; 83690; 83735; 84100; 84443; 84484; 85025; 85027; 85610; 85730; 87040; 87077; 87086; 87088; 87186; 93005; 96361; 96365; 99285; A9270; J0282; J0696; J7030; J7120

== ENCOUNTER 2024-10-02 08:19 | Outpatient (RCR) | payer SELFPAY | END 2024-10-02 23:59 | disposition home or self-care (01) | LOC: ANHAUDIO 08:19 | DX: Z46.1 Encounter for fitting and adjustment of hearing aid (principal) | CPT/HCPCS: 92593 ==